=== PATIENT | female | born 1995 | race Caucasian/White ===

== ENCOUNTER → 2016-03-24 | Outpatient (CLI) | payer MEDICAID ==
--- NOTE | 2016-03-24 14:46 | Diagnostic Imaging Report ---
OB ultrasound. INDICATION: survey. FINDINGS: The heart rate is 144 beats minute. The placenta is anterior. There is no placenta previa. The cervix is 4.9 cm in length and is closed. survey parameters include unremarkable appearance of the posterior fossa, no ventriculomegaly, unremarkable spine, stomach, urinary bladder, and no significant hydronephrosis or cystic mass at the level of the kidneys. Two umbilical arteries are demonstrated. Four-chamber view appears unremarkable. The growth parameters are all around 22 weeks and 2 days, with a normal for gestational age of 21 weeks and 1 day based on first trimester ultrasound dating. IMPRESSION: Appropriate interval growth. Completed survey. Dictated by: Dictated on workstation # [id number]
== END ==
LOC: RAD 11:51
PROVIDERS: ATTEND Family Medicine
DX: Z36 Encounter for antenatal screening of mother (principal); Z3A.22 22 weeks gestation of pregnancy
CPT/HCPCS: 76805

== ENCOUNTER → 2016-07-25 | Outpatient (CLI) | payer MEDICAID ==
--- NOTE | 2016-07-25 10:11 | Diagnostic Imaging Report ---
INDICATION: Followup growth, fetus large for gestational age. TECHNIQUE: Multiple real-time grayscale images were obtained over the gravid uterus. COMPARISON: March 24, 2016. FINDINGS: The heart rate is 140 BPM. The presentation is cephalic. The cervix is obscured. The amniotic fluid index is 9.8 cm. The placenta is anterior with no placenta previa. The growth parameters are: Biparietal diameter: 38 weeks 4 days, at the 74th percentile Head circumference: 41 weeks 0 days, at the 85th percentile Abdominal circumference: 41 weeks 2 days, more than 98th percentile Femur length: 39 weeks 2 days, at the 69th percentile These average at: 40 weeks 1 day. The estimated weight is 4.1 kg plus/minus 0.6 kg. The gestational age based on the ARMAAN of 08/03/2016 is 38 weeks and 5 days. IMPRESSION: The fetus is large for the gestational age with the abdominal circumference measurements above the 98th percentile. Dictated by: Dictated on workstation # [id number]
== END ==
LOC: RAD 09:00
PROVIDERS: ATTEND Family Medicine
DX: O36.63X0 Maternal care for excessive fetal growth, third trimester, not applicable or unspecified (principal); Z3A.40 40 weeks gestation of pregnancy
CPT/HCPCS: 76816

== ENCOUNTER 2016-07-26 19:18 | Inpatient (IN) | payer MEDICAID ==
[~2016-07-26] VITALS: Ht 147.3 cm; Wt 122.5 kg
[2016-07-26 20:00] VITALS: BP 135/70
[2016-07-26] MEDS ORDERED: LACTATED RINGERS 1,000 ML IV ONE (20:01)
[2016-07-26] MEDS ORDERED: AMPICILLIN INJECTION 2,000 MG in NS (IVPB) 50 ML IV SCH (20:01)
[2016-07-26] MEDS ORDERED: NS (IVPB) 50 ML ONE (20:11)
[2016-07-26] MEDS ORDERED: AMPICILLIN 2000 MG INJECTION (IM/IV) ONE (20:11)
[2016-07-26] MEDS ORDERED: MINERAL OIL CONCENTRATE 99.9% 15 ML UDC TOP PRN (20:15)
[2016-07-26] MEDS: D5 LR IV SOLUTION 1,000 ML IV SCH (20:18)
[2016-07-26 20:19] LABS: BASOPHILS % (AUTO) 0 % (0-10); EOSINOPHILS # (AUTO) 0.1 10^3/uL (0.0-0.3); EOSINOPHILS % (AUTO) 1 % (0-10); LYMPHOCYTES # (AUTO) 1.5 X 10^3 (1.0-4.0); LYMPHOCYTES % (AUTO) 19 % (12-44); MEAN CORPUSCULAR HEMOGLOBIN 31 PG (25-34); MEAN CORPUSCULAR HGB CONC 33 G/DL (32-36); MEAN CORPUSCULAR VOLUME 94 FL (80-99); MEAN PLATELET VOLUME 10.1 FL (7.4-10.4); MONOCYTES # (AUTO) 0.8 X 10^3 (0.0-1.0); MONOCYTES % (AUTO) 9 % (0-12); NEUTROPHILS # (AUTO) 5.7 X 10^3 (1.8-7.8); NEUTROPHILS % (AUTO) 71 % (42-75); PLATELET COUNT 166 10^3/uL (130-400); RED BLOOD COUNT 3.73 10^6/uL (4.35-5.85); WHITE BLOOD COUNT 8.1 10^3/uL (4.3-11.0)
[2016-07-26] MEDS ORDERED: CATHETER FLUSH 10 ML SYR IV PRN (20:30)
[2016-07-26] MEDS: MISOPROSTOL 100 MCG (CYTOTEC) TAB PV SCH (21:27)
[2016-07-26 22:00] VITALS: BP 121/75
[2016-07-26] MEDS ORDERED: CATHETER FLUSH 10 ML SYR IV SCH (22:00)
[2016-07-26 23:00] VITALS: BP 125/65
[2016-07-27] VITALS (46 sets, daily range): BP systolic 81–193; BP diastolic 51–88
[2016-07-27] MEDS: AMPICILLIN INJECTION 1,000 MG in NS (IVPB) 50 ML IV SCH ×5 (00:02→14:31)
[2016-07-27] MEDS: D5 LR IV SOLUTION 1,000 ML IV SCH ×2 (03:57→12:53)
[2016-07-27] MEDS: MISOPROSTOL 100 MCG (CYTOTEC) TAB PV SCH (05:35)
--- NOTE | 2016-07-27 08:43 | History & Physical-OB ---
OB - Chief Complaint & HPI Date Date of Admission: Date of Admission: Jul 26, 2016 at 19:18 Chief Complaint/History OB-Reason for Admission/Chief: Induction of Labor Hx : 1 Hx Para: 0 Expected Date of Delivery: Aug 03, 2016 Gestational Age in Weeks: 39 Gestational Age in Days: 0 Indication for induction: other (suspected macrosomia) Admission Nurse Assessment Rev: Yes History of Labs A+, antibody neg, RNI, G/C and chlamydia neg. HepB/HIV/RPR NR. 1 hour glucola normal. GBS positive. Allergies and Home Medications Allergies Coded Allergies: codeine (Verified Allergy, Unknown, 07/26/16) OB - History Hx of Present Care: Yes Ultrasounds: Normal mid trimester US Obstetrical Complications: None Medical Complications: None Other Concerns: Suspected macrosomia- EFW on US 07/25 4100 grams. Information Induced Hypertension: No Maternal Gestational Diabetes: No Hemorrhage: No Obstetrical History Hx : 1 Hx Para: 0 Hx # Term Pregnancies: 0 Number of Living Children: 0 Hx Termination: No Hx Total # of Abortions (Spona: 0 Hx Multiple Gestation: No Hx Ectopic : No Hx Stillbirth: No Hx Complication: No Hx Induced Hypertens: No Hx Maternal Gestational Diabet: No Hx Hemorrhage: No Delivery History Hx Dystocia: No Hx Forceps Assisted Delivery: No Hx Vacuum Extraction Assisted: No Hx Placenta Abnormality: No Hx Distress: No Hx Large For Gestational Age I: No Hx Small for Gestational Age I: No Hx Section: No Hx Vaginal Delivery Post C-Sec: No Hx Blood Disorders: No Adverse Rxn to Tranfusion: No Patient Past Medical History PMHx: Denies Social History/Family History HIV/AIDS: No Recent Infectious Disease Expo: No Sexually Transmitted Disease: No Alcohol Use: Denies Use Recreational Drug Use: No Smoking Cessation: Never smoker Immunizations Hepatitis A: Yes Hepatitis B: Yes Tetanus Booster (TDap): Less than 5yrs Rubella: not immune RPR/VDRL: Negative GBS Status: Positive HBsAG: Negative OB - Admission Exam Physical Exam Date Seen by Provider: Jul 27, 2016 Time Seen by Provider: 08:41 Vitals: Vital Signs 07/26/16 07/27/16 20:00 07:00 Temp 98.1 Pulse 80 Resp 18 B/P (MAP) 118/88 HEENT: NCAT Abdomen: Gravid Extremities: Edema Cervical Dilatation: other (1.5 cm) Effacement: 50% Station: -3 Membranes: Intact Heart Rate: 130's Decelerations: No Decelerations Short Term Variability: Present Ad Operations Associate Variability: Average (6-25) Contractions on Admission: 6-10 Minutes Apart Bay Scoring Tool (Modified) Dilation (cm): 1-2cm (1) Effacement (%): 51-79% (2) Descent/Station: -3 (0) Cervix Consistency: Medium(1) Cervix Position: Posterior (0) Subtract 1 point for: Nulliparity (-1) Bay Score: 3 Labs Laboratory Tests Test 07/26/16 19:40 Range/Units White Blood Count 8.1 4.3-11.0 10^3/uL Red Blood Count 3.73 L 4.35-5.85 10^6/uL Hemoglobin 11.5 11.5-16.0 G/DL Hematocrit 35 35-52 % Mean Corpuscular Volume 94 80-99 FL Mean Corpuscular Hemoglobin 31 25-34 PG Mean Corpuscular Hemoglobin Concent 33 32-36 G/DL Red Cell Distribution Width 14.0 10.0-14.5 % Platelet Count 166 130-400 10^3/uL Mean Platelet Volume 10.1 7.4-10.4 FL Neutrophils (%) (Auto) 71 42-75 % Lymphocytes (%) (Auto) 19 12-44 % Monocytes (%) (Auto) 9 0-12 % Eosinophils (%) (Auto) 1 0-10 % Basophils (%) (Auto) 0 0-10 % Neutrophils # (Auto) 5.7 1.8-7.8 X 10^3 Lymphocytes # (Auto) 1.5 1.0-4.0 X 10^3 Monocytes # (Auto) 0.8 0.0-1.0 X 10^3 Eosinophils # (Auto) 0.1 0.0-0.3 10^3/uL Basophils # (Auto) 0.0 0.0-0.1 10^3/uL OB - Assessment/Plan/Diagnosis Assessment Assessment: group B positive strep, induction of labor Plan Plan: Induction Induction Method: per Misoprostol Protocol Other Plan Ampicillin for GBS positive Copy Copies To 1: NESSA VICENTE MD, BETHANY N MD Jul 27, 2016 08:43
--- NOTE | 2016-07-27 10:02 | OB Labor & Delivery Record ---
L&D History Date of Service Date of Service: Jul 27, 2016 History Expected Date of Delivery: Aug 03, 2016 Gestational Age in Weeks: 39 Hx : 1 Hx Para: 0 Complications Events: Routine care Operative Indications (Cesarea: Failure to Progress L&D Stage1 Stage One Onset of Labor - Date: Jul 26, 2016 Onset of Labor - Time: 21:00 Monitors and Tracing Monitor Mode: External Heart Rate: 125 Station: -2 Vital Signs VS - Last 72 Hours, by Label 07/26/16 07/26/16 07/26/16 07/26/16 20:00 21:00 22:00 23:00 Temp 98.1 Pulse 100 76 78 Resp 18 18 18 18 B/P (MAP) 135/70 121/75 125/65 07/27/16 07/27/16 07/27/16 07/27/16 00:00 01:00 02:00 03:00 Pulse 77 82 80 Resp 18 18 18 18 B/P (MAP) 129/71 119/63 113/54 07/27/16 07/27/16 07/27/16 07/27/16 04:00 05:00 06:00 07:00 Pulse 80 80 82 80 Resp 18 18 18 18 B/P (MAP) 113/54 118/68 127/75 118/88 Rupture of Membranes Spontaneous Ruture of Membrane: No Amniotic Membrane Rupture Time: 10:00 Amniotic Membrane Fluid Desc.: Clear Progress/Notes 07/27 at 10 am: 4 hours after second dose of cytotec, clover every 2-3 minutes. SVE 3/70/-1. AROM done with clear fluid and FSE placed for better tracing ability. FHT 130/moderate variability/reactive. Ctx 3-/10. Will monitor for cervical change after AROM if contractions continue, if contractions space out will start pitocin or if no change in 1-2 hours will start pitocin. 07/27 at 1700: SVE 4/90/-1. Discussed exam with patient and protracted labor course and she is agreeable to at this time for failure to progress. L&D Stage2 Monitors and Tracing Monitor Mode: External Heart Rate: 125 NESSA VICENTE MD Jul 27, 2016 10:02 am
[2016-07-27] MEDS ORDERED: SUFENTA 0.6MCG/ML BUPIVA 0.125 100 ML ONE (11:17)
[2016-07-27] MEDS ORDERED: OXYTOCIN/NORMAL SALINE 500 ML IV SCH (11:28)
[2016-07-27] MEDS ORDERED: fentaNYL INJECTION 100 MCG/2 ML AMP ONE ×3 (12:02→19:14)
[2016-07-27] MEDS ORDERED: LACTATED RINGERS 1,000 ML IV ONE (12:33)
[2016-07-27] MEDS ORDERED: ONDANSETRON 4 MG/2 ML (SDV) Z0FRAN IV PRN (12:45)
[2016-07-27] MEDS ORDERED: METOCLOPRAMIDE INJ 10 MG/2 ML (REGLAN) IV PRN (12:45)
[2016-07-27] MEDS ORDERED: diphenhydrAMINE 50 MG/ML INJ (BENADRYL) IV PRN (12:45)
[2016-07-27] MEDS ORDERED: NALOXONE 0.4 MG/ML 1 ML (NARCAN) VIAL IV PRN ×2 (12:45)
[2016-07-27] MEDS ORDERED: EPIDURAL (SUFENTA 0.6MCG/ML BUPIVA 0.125%) 100 ML BAG EPI PRN (12:45)
[2016-07-27] MEDS ORDERED: METOCLOPRAMIDE INJ 10 MG/2 ML (REGLAN) IV ONE (16:45)
[2016-07-27] MEDS ORDERED: LACTATED RINGERS 1,000 ML IV PRN ×2 (16:45)
[2016-07-27] MEDS ORDERED: CITRIC ACID/SOB CIT (BICITRA) 30 ML UDC PO ONE (16:45)
[2016-07-27] MEDS ORDERED: FAMOTIDINE 20MG/2ML IV (PEPCID) IV ONE (16:45)
[2016-07-27] MEDS ORDERED: AZITHROMYCIN IV ADD-VANTAGE 500 MG in SODIUM CHLORIDE (ADD-VANTAGE) 250 ML IV SCH (18:15)
[2016-07-27] MEDS ORDERED: LIDOCAINE PF 2% 10 ML (XYLOCAINE) AMP ONE (18:38)
[2016-07-27] MEDS ORDERED: OXYTOCIN/NORMAL SALINE 1,000 ML IV ONE (18:44)
[2016-07-27] MEDS ORDERED: DEXAMETHASONE PF 10 MG/ML (DECADRON) VIAL ONE (18:44)
[2016-07-27] MEDS ORDERED: ONDANSETRON 4 MG/2 ML (SDV) Z0FRAN ONE (18:44)
--- NOTE | 2016-07-27 18:45 | History & Physical-OB ---
OB - Chief Complaint & HPI Date/Time Date of Admission: Date of Admission: Jul 26, 2016 at 19:18 Time Seen by Provider: 17:00 Chief Complaint/History OB-Reason for Admission/Chief: Induction of Labor Hx : 1 Hx Para: 0 Expected Date of Delivery: Aug 03, 2016 Gestational Age in Weeks: 39 Gestational Age in Days: 0 Indication for induction: other (suspected macrosomia) Other reason for admission: Nikkie is a 20 y/o G1 @ 39w0d with IOL for suspected macrosomia. managed by Dr. Madrigal. I was consulted for options as arrest of labor and descent were diagnosed. She was given several doses of cytotec and then pitocin was started this morning with AROM. She has been given ampicillin for GBS ppx. She has progressed only from 3 to 4 cm over the last 10 hours. Last EFW on ultrasound was 4100g. c/b only by morbid obesity, rubella non-immune status. Admission Nurse Assessment Rev: Yes History of Labs Per the antepartum record/Dr. Madrigal's H&P Rubella non-immune Allergies and Home Medications Allergies Coded Allergies: codeine (Verified Allergy, Unknown, 07/26/16) OB - History Hx of Present Care: Yes Ultrasounds: Normal mid trimester US Obstetrical Complications: None Medical Complications: None Information Induced Hypertension: No Maternal Gestational Diabetes: No Hemorrhage: No Obstetrical History Hx : 1 Hx Para: 0 Hx # Term Pregnancies: 0 Number of Living Children: 0 Hx Termination: No Hx Total # of Abortions (Spona: 0 Hx Multiple Gestation: No Hx Ectopic : No Hx Stillbirth: No Hx Complication: No Hx Induced Hypertens: No Hx Maternal Gestational Diabet: No Hx Hemorrhage: No Delivery History Hx Dystocia: No Hx Forceps Assisted Delivery: No Hx Vacuum Extraction Assisted: No Hx Placenta Abnormality: No Hx Distress: No Hx Large For Gestational Age I: No Hx Small for Gestational Age I: No Hx Section: No Hx Vaginal Delivery Post C-Sec: No Hx Blood Disorders: No Adverse Rxn to Tranfusion: No Patient Past Medical History PMHx: Denies Social History/Family History HIV/AIDS: No Recent Infectious Disease Expo: No Sexually Transmitted Disease: No Alcohol Use: Denies Use Recreational Drug Use: No Smoking Cessation: Never smoker Immunizations Hepatitis A: Yes Hepatitis B: Yes Tetanus Booster (TDap): Less than 5yrs Rubella: not immune RPR/VDRL: Negative GBS Status: Positive HBsAG: Negative OB - Admission Exam Physical Exam Time Seen by Provider: 17:00 Vitals: Vital Signs 07/27/16 07/27/16 07/27/16 14:45 18:15 18:30 Temp 98.4 Pulse 82 Resp 18 B/P (MAP) 131/57 Pulse Ox 99 HEENT: NCAT Abdomen: Gravid Extremities: Edema Cervical Dilatation: other (1.5 cm) Effacement: 50% Station: -3 Membranes: Intact Heart Rate: 130's Decelerations: No Decelerations Short Term Variability: Present Longterm Variability: Average (6-25) Contractions on Admission: 6-10 Minutes Apart Bay Scoring Tool (Modified) Bay Score: 3 Labs Laboratory Tests Test 07/26/16 19:40 Range/Units White Blood Count 8.1 4.3-11.0 10^3/uL Red Blood Count 3.73 L 4.35-5.85 10^6/uL Hemoglobin 11.5 11.5-16.0 G/DL Hematocrit 35 35-52 % Mean Corpuscular Volume 94 80-99 FL Mean Corpuscular Hemoglobin 31 25-34 PG Mean Corpuscular Hemoglobin Concent 33 32-36 G/DL Red Cell Distribution Width 14.0 10.0-14.5 % Platelet Count 166 130-400 10^3/uL Mean Platelet Volume 10.1 7.4-10.4 FL Neutrophils (%) (Auto) 71 42-75 % Lymphocytes (%) (Auto) 19 12-44 % Monocytes (%) (Auto) 9 0-12 % Eosinophils (%) (Auto) 1 0-10 % Basophils (%) (Auto) 0 0-10 % Neutrophils # (Auto) 5.7 1.8-7.8 X 10^3 Lymphocytes # (Auto) 1.5 1.0-4.0 X 10^3 Monocytes # (Auto) 0.8 0.0-1.0 X 10^3 Eosinophils # (Auto) 0.1 0.0-0.3 10^3/uL Basophils # (Auto) 0.0 0.0-0.1 10^3/uL OB - Assessment/Plan/Diagnosis Assessment Assessment: group B positive strep, induction of labor Plan Other Plan 20 y/o G1 @ 39w0d with failed IOL, arrest of labor/descent, GBS+ Class III obesity (BMI 56) I reviewed with Nikkie that given suspected CPD and arrest of labor/descent, I would recommend delivery at this time. We reviewed risks including bleeding, infection, damage to surrounding structures, damage to mother/, VTE/stroke/OR. She voices her consent. To OR for CS. Sherita-operative ancef and azithromycin. Dr. Rohan aceves. CAROL ZIMMER MD Jul 27, 2016 18:45
[2016-07-27] MEDS ORDERED: FERR-74 PO (18:47)
[2016-07-27] MEDS ORDERED: IBUP-1773 PO (18:47)
[2016-07-27] MEDS ORDERED: OXYC-197 PO (18:47)
[2016-07-27] MEDS ORDERED: DOCU-143 PO (18:47)
--- NOTE | 2016-07-27 18:49 | Discharge Inst-Women's Service ---
Discharge Inst-Women's Serv Depart Medication/Instructions New, Converted or Re-Newed RX: RX on Chart Final Diagnosis Failed IOL, arrest of labor/descent, suspected CPD, primary CD Consults/Follow Up Additional Follow Up: Yes Orders/Referrals One week with Dr. Yu Six weeks with Dr. Madrigal Activity Driving Instructions: No Driving for 1 Week (or while taking narcotic pain medications) NO SMOKING: NO SMOKING Nothing Inside Vagina: No Douching, No [place], No Tampons Diet Discharge Diet: No Restrictions Symptoms to Report to : Bleeding Excessive, Pain Increased, Fever Over 101 Degrees F, Pain/Pressure in Chest, Vaginal Bleeding Increase, Dizziness/Fainting , Nausea/Vomiting, Shortness of Breath For Any Problems or Questions: Contact Your Physician, Go to Emergency Room Skin/Wound Care Infection Signs and Symptoms: Increased Redness, Foul Odor of Wound, Increased Drainage Operative Area Clean and Dry: Keep Incision Clean/Dry Stitches/Lisa/Dermabond: Dermabond, Care of Stitches Bathing Instructions: CAROL Hunt MD Jul 27, 2016 18:48
--- NOTE | 2016-07-27 18:54 | Cesarean Section Operative ---
Procedure Procedure Note Date of Procedure: 07/27/16 Pre-operative Diagnosis: Nikkie Murray is a 20 y/o G1 @ 39w0d with failed induction of labor, arrest of labor/descent, suspected CPD, GBS+, class III obesity (BMI 56) Post-operative Diagnosis: Same Procedure: Primary low transverse section Physician: Nelly Yu MD Guest Service Supervisor: Janice Cespedes APRN who was essential to the case for retraction of vital neurovascular structures Estimated blood loss: 1000 mL Disposition: Recovery room stable Findings: Viable male , Apgars 9/9, weight 4ee17ct, intact placenta, 3vc, normal appearing uterus, tubes, and ovaries. Indications: Nikkie Murray is a 20 y/o G1 @ 39w0d who presented for IOL as per Dr. Madrigal (her care provider) - see H&P for details. Cervical ripening was accomplished with cytotec, and then she received pitocin for induction. She had an epidural placed for analgesia. Ampicillin was given for GBS prophylaxis. She only changed from 3 to 4 cm over 10 hours with no further descent and was counseled on need for abdominal delivery which she consented to. Procedure Details: The patient was seen in pre-op and the procedure was discussed with the patient in full, including the risks, benefits, and alternatives. All questions were answered. The patient was taken to the operating room and a time out was performed, verifying patient and procedure. After spinal anesthesia was placed by our anesthesia colleagues, the patient was placed in the dorsal supine with leftward tilt for uterine displacement. Her abdomen was then prepped and draped in the typical sterile fashion. A Pfannenstiel skin incision was made using a scalpel and carried down through the underlying fascia. The fascia was incised in the midline and tented up using Emily clamps. On both the inferior and superior fascia side the rectus muscle was dissected off bluntly and sharply using Moseley scissors. The peritoneum was identified and entered bluntly in the midline. This was then stretched laterally using manual strength. After entering the abdominal cavity and confirming lack of intraperitoneal adhesions, a large Felix retractor was placed and the lower uterine segment was visualized. A bladder flap was created with the use of Metzenbaum scissors. A scalpel was utilized to make a low transverse uterine incision. Amniotomy was performed with an Allis clamp with return of clear fluid. The 's head was grasped and brought to the level of the incision. Fundal pressure was applied and infant was delivered without difficulty. Mouth and nares were suctioned with bulb suction. After the umbilical cord was clamped and cut, the was handed off to the pediatric staff. A sample of cord blood was then obtained. The placenta was delivered intact via uterine massage. The uterus was cleared of all clots and debris. The uterine incision was closed using 0 Vicryl in a running locked fashion. A second imbricated layer was placed using 0 Vicryl in a running fashion as well. Again the hysterotomy site was examined and hemostasis was observed. The bilateral tubes and ovaries appeared normal. The abdominal gutters were cleared of all clots and debris. A final check of the uterine incision showed it to be hemostatic. The peritoneum was closed using 3- 0 Vicryl in a running fashion. The fascia was closed with 0 Vicryl in a running fashion. The subcutaneous space was hemostatic, and irrigated. The subcutaneous space was closed with 3-0 Vicryl in several single interrupted stitches. The skin was then closed using 4-0 Monocryl in a running subcuticular fashion. The skin edges were reapproximated together and were hemostatic. A pressure dressing was applied. All sponge, lap and needle counts were correct at the end of the procedure per nursing. Vitals - Labs Vital Signs - I&O Vital Signs Date Time Temp Pulse Resp B/P (MAP) Pulse Ox O2 Delivery O2 Flow Rate FiO2 07/27/16 18:30 82 18 131/57 07/27/16 18:15 98.4 77 18 121/60 07/27/16 18:00 77 18 120/63 07/27/16 17:45 79 18 126/65 07/27/16 17:30 90 18 136/59 07/27/16 17:15 88 18 127/60 07/27/16 17:00 81 18 145/63 07/27/16 16:45 82 18 139/65 07/27/16 16:30 07/27/16 16:15 80 18 134/60 07/27/16 16:00 80 18 136/68 07/27/16 15:45 98.2 88 18 117/59 07/27/16 15:30 85 18 128/61 07/27/16 15:15 86 18 124/59 6/17 15:00 90 18 108/57 6/7/17 14:45 92 18 107/58 99 7/17 14:30 78 18 109/59 99 7/17 14:15 81 18 116/56 99 7/17 14:00 98.6 76 18 105/51 99 7/17 13:45 84 18 99 07/27/17 13:30 88 18 81/56 98 7/17 13:15 92 18 99 7/17 13:10 83 18 124/63 99 07/27/ 13:05 75 18 120/71 99 07/27/17 13:00 84 18 117/73 99 17 12:55 84 18 125/66 99 07/27/16 12:50 88 18 162/80 98 17 12:45 86 18 193/78 98 07/27/17 12:39 90 18 143/67 98 07/27/16 12:36 86 18 145/73 98 07/27/17 12:33 82 18 145/71 99 07/27/16 12:30 80 18 149/78 98 07/27/16 12:25 93 18 129/68 98 07/27/ 12:20 90 18 130/61 98 7/17 12:15 99.1 93 18 135/78 99 07/27/16 12:00 07/27/16 11:45 78 18 143/85 07/27/16 11:10 79 18 140/86 07/27/16 11:00 07/27/16 10:00 100.0 83 18 135/83 07/27/16 09:00 78 18 130/74 07/27/17 08:00 98.7 78 18 130/74 07/27/17 07:00 80 18 118/88 17 06:00 82 18 127/75 07/27/17 05:00 80 18 118/68 7/17 04:00 80 18 113/54 07/27/17 03:00 80 18 113/54 07/27/17 02:00 82 18 119/63 07/27/17 01:00 77 18 129/71 07/27/ 00:00 18 07/26/16 23:00 78 18 125/65 07/26/16 22:00 76 18 121/75 07/26/16 21:00 18 07/26/16 20:00 98.1 100 18 135/70 I & O 07/27/16 07:00 Intake Total 2150 ml Balance 2150 ml Labs Laboratory Tests 07/26/16 19:40: White Blood Count 8.1, Red Blood Count 3.73L, Hemoglobin 11.5, Hematocrit 35, Mean Corpuscular Volume 94, Mean Corpuscular Hemoglobin 31, Mean Corpuscular Hemoglobin Concent 33, Red Cell Distribution Width 14.0, Platelet Count 166, Mean Platelet Volume 10.1, Neutrophils (%) (Auto) 71, Lymphocytes (%) (Auto) 19 , Monocytes (%) (Auto) 9, Eosinophils (%) (Auto) 1, Basophils (%) (Auto) 0, Neutrophils # (Auto) 5.7, Lymphocytes # (Auto) 1.5, Monocytes # (Auto) 0.8, Eosinophils # (Auto) 0.1, Basophils # (Auto) 0.0 NELLY YU MD Jul 27, 2016 18:54
[2016-07-27] MEDS ORDERED: AZITHROMYCIN INJECTION 500 MG in NS (IVPB) 250 ML IV ONE (19:00)
[2016-07-27] MEDS ORDERED: ceFAZolin 2 GM/50 ML NS 50 ML IV NR (19:00)
[2016-07-27] MEDS ORDERED: AZITHROMYCIN IV ADD-VANTAGE 500 MG in SODIUM CHLORIDE (ADD-VANTAGE) 250 ML IV NR (19:00)
[2016-07-27] MEDS ORDERED: PHENYLEPHRINE 100 MCG/ML 10 ML (ANESTHESIA) SYR ONE (19:06)
[2016-07-27] MEDS ORDERED: BUPIVACAINE 0.25% 30 ML (SENSORCAINE) VIAL ONE (19:17)
[2016-07-27] MEDS ORDERED: KETAMINE HCL 100 MG/ML 5 ML VIAL ONE (19:22)
[2016-07-27] MEDS ORDERED: KETOROLAC 30 MG/ML VIAL ONE (19:36)
[2016-07-27] MEDS ORDERED: MEASLES,MUMPS,RUBELLA 1 EA INJ SC SCH (20:30)
[2016-07-27] MEDS ORDERED: HYDROmorphone (DILAUDID) 2 MG/ML VIAL IVP PRN (20:30)
[2016-07-27] MEDS ORDERED: TETANUS,DIPTH,PERTUSS P/F (BOOSTRIX) 0.5 ML VIAL IM SCH (20:30)
[2016-07-27] MEDS: KETOROLAC 30 MG/ML VIAL IVP SCH (20:35)
[2016-07-27] MEDS: DOCUSATE SODIUM 100 MG (COLACE) CAP PO SCH (21:00)
[2016-07-27] MEDS: OXYTOCIN/NORMAL SALINE 500 ML IV SCH (21:41)
[2016-07-27] MEDS: CATHETER FLUSH 10 ML SYR IV SCH (22:00)
[2016-07-28 00:07] VITALS: BP 114/67
[2016-07-28] MEDS: oxyCODONE/APAP 5/325MG (PERCOCET 5) TABLET PO PRN ×3 (00:07→18:45)
[2016-07-28] MEDS: OXYTOCIN/NORMAL SALINE 500 ML IV SCH (01:31)
[2016-07-28] MEDS: KETOROLAC 30 MG/ML VIAL IVP SCH ×2 (02:55→08:52)
[2016-07-28 05:00] VITALS: BP 107/55
[2016-07-28] MEDS: CATHETER FLUSH 10 ML SYR IV SCH (06:00)
[2016-07-28 06:56] LABS: BASOPHILS % (AUTO) 0 % (0-10); EOSINOPHILS % (AUTO) 0 % (0-10); LYMPHOCYTES # (AUTO) 0.7 X 10^3 (1.0-4.0); LYMPHOCYTES % (AUTO) 7 % (12-44); MEAN CORPUSCULAR HEMOGLOBIN 30 PG (25-34); MEAN CORPUSCULAR HGB CONC 31 G/DL (32-36); MEAN CORPUSCULAR VOLUME 96 FL (80-99); MEAN PLATELET VOLUME 9.9 FL (7.4-10.4); MONOCYTES # (AUTO) 0.6 X 10^3 (0.0-1.0); MONOCYTES % (AUTO) 6 % (0-12); NEUTROPHILS # (AUTO) 9.6 X 10^3 (1.8-7.8); NEUTROPHILS % (AUTO) 88 % (42-75); PLATELET COUNT 142 10^3/uL (130-400); RED BLOOD COUNT 2.76 10^6/uL (4.35-5.85); RED CELL DISTRIBUTION WIDTH 13.8 % (10.0-14.5)
[2016-07-28] MEDS ORDERED: FERROUS SULF 325 MG (IRON) TAB PO SCH (07:00)
[2016-07-28 08:30] VITALS: BP 122/74
[2016-07-28] MEDS: FERROUS SULF 325 MG (IRON) TAB PO SCH (08:52)
[2016-07-28] MEDS: DOCUSATE SODIUM 100 MG (COLACE) CAP PO SCH ×2 (08:52→20:37)
--- NOTE | 2016-07-28 09:21 | Progress Note-Standard ---
Standard Progress Note Progress Notes/Assess & Plan Date Seen by Provider: Jul 28, 2016 Time Seen by Provider: 09:05 Progress/Assessment & Plan Patient doing well POD 1 PLTCS. Reports good pain control, and actually ambulating upon me entering the room. Voiding freely. Lochia light. NO concerns voiced by patient. Vital Sign - Last 24 Hours 07/27/16 6 6/ 6 10:00 11:00 11:10 11:45 Temp 100.0 Pulse 83 79 78 Resp 18 18 18 B/P (MAP) 135/83 140/86 143/85 //17 6//17 6//17 6/17 12:00 12:15 12:20 12:25 Temp 99.1 Pulse 93 90 93 Resp 18 18 18 B/P (MAP) 135/78 130/61 129/68 Pulse Ox 99 98 98 /7/17 6//17 6//17 6 12:30 12:33 12:36 12:39 Pulse 80 82 86 90 Resp 18 18 18 18 B/P (MAP) 149/78 145/71 145/73 143/67 Pulse Ox 98 99 98 98 /7/17 6//17 6/7/17 6//17 12:45 12:50 12:55 13:00 Pulse 86 88 84 84 Resp 18 18 18 18 B/P (MAP) 193/78 162/80 125/66 117/73 Pulse Ox 98 98 99 99 07/27/07/27/ 6//17 //17 13:05 13:10 13:15 13:30 Pulse 75 83 92 88 Resp 18 18 18 18 B/P (MAP) 120/71 124/63 81/56 Pulse Ox 99 99 99 98 /7/17 6//17 6//17 6//17 13:45 14:00 14:15 14:30 Temp 98.6 Pulse 84 76 81 78 Resp 18 18 18 18 B/P (MAP) 105/51 116/56 109/59 Pulse Ox 99 99 99 99 /7/17 6//17 6//17 6//17 14:45 15:00 15:15 15:30 Pulse 92 90 86 85 Resp 18 18 18 18 B/P (MAP) 107/58 108/57 124/59 128/61 Pulse Ox 99 07/27/16 07/27/16 07/27/16 07/27/16 15:45 16:00 16:15 16:30 Temp 98.2 Pulse 88 80 80 Resp 18 18 18 B/P (MAP) 117/59 136/68 134/60 07/27/07/27/16 07/27/16 07/27/16 16:45 17:00 17:15 17:30 Pulse 82 81 88 90 Resp 18 18 18 18 B/P (MAP) 139/65 145/63 127/60 136/59 07/27/07/27/16 07/27/16 07/27/16 17:45 18:00 18:15 18:30 Temp 98.4 Pulse 79 77 77 82 Resp 18 18 18 18 B/P (MAP) 126/65 120/63 121/60 131/57 07/27/16 07/27/16 07/28/16 07/28/16 18:49 21:15 00:07 05:00 Temp 98.9 97.8 98.7 Pulse 87 88 90 91 Resp 18 20 18 18 B/P (MAP) 131/61 112/61 114/67 107/55 Pulse Ox 97 96 97 07/28/16 08:30 Temp 97.6 Pulse 106 Resp 18 B/P (MAP) 122/74 Pulse Ox 99 Intake and Output 07/27/16 07/27/16 07/28/16 15:00 23:00 07:00 Intake Total 2000 ml 1880 ml 1500 ml Output Total 1100 ml 600 ml Balance 2000 ml 780 ml 900 ml Laboratory Tests Test 07/28/16 06:15 Range/Units White Blood Count 11.0 4.3-11.0 10^3/uL Red Blood Count 2.76 L 4.35-5.85 10^6/uL Hemoglobin 8.3 #L 11.5-16.0 G/DL Hematocrit 26 L 35-52 % Mean Corpuscular Volume 96 80-99 FL Mean Corpuscular Hemoglobin 30 25-34 PG Mean Corpuscular Hemoglobin Concent 31 L 32-36 G/DL Red Cell Distribution Width 13.8 10.0-14.5 % Platelet Count 142 130-400 10^3/uL Mean Platelet Volume 9.9 7.4-10.4 FL Neutrophils (%) (Auto) 88 H 42-75 % Lymphocytes (%) (Auto) 7 L 12-44 % Monocytes (%) (Auto) 6 0-12 % Eosinophils (%) (Auto) 0 0-10 % Basophils (%) (Auto) 0 0-10 % Neutrophils # (Auto) 9.6 H 1.8-7.8 X 10^3 Lymphocytes # (Auto) 0.7 L 1.0-4.0 X 10^3 Monocytes # (Auto) 0.6 0.0-1.0 X 10^3 Eosinophils # (Auto) 0.0 0.0-0.3 10^3/uL Basophils # (Auto) 0.0 0.0-0.1 10^3/uL Incision: c/d/i Diagnosis: POD 1 PLTCS Acute blood loss anemia- asymptomatic BMI 56 P: Continue routine po care replace iron REGIANLD CASTILLO DO Jul 28, 2016 9:21 am
[2016-07-28] MEDS ORDERED: IBUPROFEN 800 MG (MOTRIN) TAB PO ONE ×2 (13:13→20:17)
[2016-07-28 13:20] VITALS: BP 117/68
[2016-07-28] MEDS: ENOXAPARIN 40 MG/0.4 ML (LOVENOX) SYR SC SCH (13:20)
[2016-07-28] MEDS: IBUPROFEN 800 MG (MOTRIN) TAB PO SCH ×2 (13:20→20:36)
--- NOTE | 2016-07-28 13:52 | Anesthesia-Regional Post-Op ---
Regional Patient Condition Mental Status: Alert, Oriented x3 Circulation: Same as Pre-Op Headache: Absent Sensation: Full Recovery Motor Block: Absent Post Op Complications Complications None Follow Up Care/Instructions Patient Instructions None needed. Anesthesia/Patient Condition Patient is doing well, no complaints, stable vital signs, no apparent adverse anesthesia problems. No complications reported per nursing. ANTHONY BROWN CRNA Jul 28, 2016 13:52
[2016-07-28 18:45] VITALS: BP 109/67
[2016-07-28 19:40] VITALS: BP 104/67
[2016-07-29 01:00] VITALS: BP 110/70
[2016-07-29] MEDS: IBUPROFEN 800 MG (MOTRIN) TAB PO SCH ×2 (02:53→08:16)
[2016-07-29] MEDS: CATHETER FLUSH 10 ML SYR IV SCH ×2 (06:00→13:51)
[2016-07-29 08:00] VITALS: BP 95/58
[2016-07-29] MEDS: FERROUS SULF 325 MG (IRON) TAB PO SCH (08:15)
[2016-07-29] MEDS: oxyCODONE/APAP 5/325MG (PERCOCET 5) TABLET PO PRN (08:16)
[2016-07-29] MEDS: ENOXAPARIN 40 MG/0.4 ML (LOVENOX) SYR SC SCH (13:24)
[2016-07-29] MEDS: DOCUSATE SODIUM 100 MG (COLACE) CAP PO SCH (13:51)
[2016-07-29 14:00] VITALS: BP 110/62
--- NOTE | 2016-07-29 14:20 | Postpartum Progress Note ---
Post Op Post-operative Day #2 s/p PLTCS, FTP/arrest Declined Lovenox Subjective: Patient is without complaints. Ambulating, voiding after hoffman removed. Tolerating a regular diet without nausea or vomiting. Normal lochia. Pain is well controlled with oral pain medications. Passing flatus. baby has been discharged. Objective: Vital Sign - Last 12Hours 07/29/16 08:00 Temp 96.2 Pulse 88 Resp 17 B/P (MAP) 95/58 Pulse Ox 98 Physical Exam: General - Alert and oriented, no apparent distress Abdomen - Soft, appropriately tender to palpation, non-distended, fundus firm at umbilicus Incision - clean, dry and intact; no erythema or induration, no drainage Extremities - no edema, negative Maricarmen's bilaterally Assessment: 1. post-operative day # 1, status post s/p PLTCS. Recovering well, hemodynamically stable 2. Acute blood loss anemia - stable, replacing iron Plan: Routine post-operative care. Encourage breast feeding. Encourage ambulation. VTE prophylaxis: SCDs. Ferrous sulfate supplementation. Plan for discharge [today Vitals - Labs Vital Signs - I&O Vital Signs Date Time Temp Pulse Resp B/P (MAP) Pulse Ox O2 Delivery O2 Flow Rate FiO2 07/29/16 08:00 96.2 88 17 95/58 98 07/29/16 01:00 96.8 72 18 110/70 100 07/28/16 19:40 96.8 60 18 104/67 100 07/28/16 18:45 98.6 101 18 109/67 99 I & O 07/29/16 07:00 Intake Total 600 ml Balance 600 ml Labs Microbiology 07/27/16 MRSA Screen - Final, Complete MRSA not isolated SARAH BRUNER DO Jul 29, 2016 14:20
== END 2016-07-29 15:40 | disposition home or self-care (01) | DRG 765 ==
LOC: LDRP 19:18 → WS 07-27 20:56
PROVIDERS: ADMIT Family Medicine; ATTEND Family Medicine
PROC: 3E0DXGC Introduction of Other Therapeutic Substance into Mouth and Pharynx, External Approach (ICD-10-PCS; 2016-07-27)
PROC: 10D00Z1 Extraction of Products of Conception, Low, Open Approach (ICD-10-PCS; principal; 2016-07-27 18:52)
DX: O62.1 Secondary uterine inertia (principal); O32.4XX0 Maternal care for high head at term, not applicable or unspecified; O61.0 Failed medical induction of labor; O36.63X0 Maternal care for excessive fetal growth, third trimester, not applicable or unspecified; O99.214 Obesity complicating childbirth; E66.01 Morbid (severe) obesity due to excess calories; Z68.43 Body mass index [BMI] 50.0-59.9, adult; O90.81 Anemia of the puerperium; D62 Acute posthemorrhagic anemia; O99.824 Streptococcus B carrier state complicating childbirth; Z37.0 Single live birth; Z3A.39 39 weeks gestation of pregnancy
CPT/HCPCS: 36415; 85025; 86850; 86900; 86901; 87081; 90707; 94664

== ENCOUNTER → 2016-10-26 | Outpatient (CLI) | payer MEDICAID ==
[~2016-10-26] MED LIST: DOCU-143 PO; FERR-74 PO; IBUP-1773 PO; OXYC-197 PO
[2016-10-28 10:08] LABS: IMMUNOGLOBULIN IGA 142 mg/dL (71-263)
[2016-10-31 07:59] LABS: GLIADIN ANTIBODY IGA 2 Units (0-19)
[2016-10-31 08:00] LABS: GLIADIN ANTIBODY IGG 1 Units (0-19)
== END ==
LOC: LAB 20:14
PROVIDERS: ATTEND Nurse Practitioner Family
DX: R10.13 Epigastric pain (principal); R19.7 Diarrhea, unspecified
CPT/HCPCS: 36415; 82784; 83516

== ENCOUNTER → 2017-07-21 | Outpatient (CLI) | payer MEDICAID ==
[~2017-07-21] MED LIST changes: -FERR-74 PO; +FERR325T18 PO
--- NOTE | 2017-07-21 14:09 | Diagnostic Imaging Report ---
PROCEDURE: US OB SINGLE FETUS <14 WKS. TECHNIQUE: Multiple real-time grayscale images were obtained over the gravid uterus in various projections. INDICATION: . Dating. COMPARISON: None. FINDINGS: There is a single live intrauterine gestation demonstrated. The crown-rump length measures about 2.9 cm which corresponds to an estimated gestational age of 9 weeks 6 days yielding an ARMAAN of 02/17/2018. cardiac activity is detected with a heart rate of 174 beats per minute. There is a small subchorionic hemorrhage present measuring up to 3.9 cm x 2.4 cm x 0.8 cm. Neither ovary is demonstrated. IMPRESSION: 1. Single live intrauterine gestation dating 9 weeks 6 days based on today's ultrasound with an ARMAAN of 02/17/2018. Heart rate is 174 beats per minute. 2. Small subchorionic hemorrhage. Dictated by: Dictated on workstation # [id number]
== END ==
LOC: RAD 11:48
PROVIDERS: ATTEND Family Medicine
DX: O34.81 Maternal care for other abnormalities of pelvic organs, first trimester (principal); Z3A.09 9 weeks gestation of pregnancy
CPT/HCPCS: 76801

== ENCOUNTER → 2017-07-25 | Outpatient (CLI) | payer MEDICAID ==
--- NOTE | 2017-07-25 12:42 | Diagnostic Imaging Report ---
INDICATION: First trimester bleeding. TECHNIQUE: Multiple real-time grayscale images were obtained over the gravid uterus. COMPARISON: 07/21/2017. FINDINGS: The gestational sac with normal morphology remains in good position at the level of the fundus. An embryo is again seen with heart rate of 170 beats per minute. Subchorionic hemorrhage is again noted which is greatest along the inferior aspect of the gestational sac, where it measures up to 1.6 cm in thickness. A thin component of the subchorionic hemorrhage is thin along the posterior margin of the entire gestational sac. The adnexa were not well visualized on this examination due to bowel gas. IMPRESSION: 1. Single live early intrauterine with heart rate of 170 beats per minute. 2. Perigestational/subchorionic hemorrhage has increased in size since prior exam of 07/21/2017. Dictated by: Dictated on workstation # [id number]
== END ==
LOC: RAD 09:29
PROVIDERS: ATTEND Family Medicine
DX: O46.91 Antepartum hemorrhage, unspecified, first trimester (principal); O20.0 Threatened abortion; Z3A.00 Weeks of gestation of pregnancy not specified
CPT/HCPCS: 76816

== ENCOUNTER → 2017-08-18 | Outpatient (CLI) | payer MEDICAID ==
--- NOTE | 2017-08-18 13:33 | Diagnostic Imaging Report ---
PROCEDURE: US OB SINGLE FETUS <14 WKS. TECHNIQUE: Multiple real-time grayscale images were obtained over the gravid uterus in various projections. INDICATION: Subchorionic bleed, followup. CORRELATION STUDY: 07/21/2017 FINDINGS: This is a limited, followup obstetrical examination. Previous imaging demonstrated a approximately 7 x 2 cm subchorionic bleed. On followup, this appears to have essentially resolved. Intrauterine demonstrated gestational sac configuration to be unremarkable. The crown-rump length measures 7.70 cm for an estimated age of 13 weeks 6 days. cardiac activity 167 beats per minute. Imaging of the maternal adnexa demonstrates nonvisualization of either ovary. Perhaps obscured by bowel gas or positional. IMPRESSION: 1. Single viable intrauterine with estimated age of 13 weeks 6 days for sonographic estimated date of delivery 02/17/2018. 2. A previously noted subchorionic hematoma appears essentially resolved. Dictated by: Dictated on workstation # [id number]
== END ==
LOC: RAD 11:49
PROVIDERS: ATTEND Family Medicine
DX: O46.8X1 Other antepartum hemorrhage, first trimester (principal); Z3A.13 13 weeks gestation of pregnancy
CPT/HCPCS: 76801

== ENCOUNTER 2017-11-30 13:17 | Outpatient (CLI) | payer MEDICAID ==
[~2017-11-30] VITALS: Ht 147.3 cm; Wt 104.8 kg
[~2017-11-30 13:17] MED LIST changes: -OXYC-197 PO; +OXYC1TAB87 PO
[2017-11-30 13:40] VITALS: BP 127/68
[2017-11-30] MEDS ORDERED: FLU QUADRIvalent (5+ YOA) 2018-2019 (AFLURIA) 0.5 ML IM ONE (14:45)
--- NOTE | 2017-11-30 16:34 | Diagnostic Imaging Report ---
EXAMINATION: OB ultrasound limited. INDICATION: Vaginal bleeding. FINDINGS: The recent OB ultrasound exam of 10/11/2017 noted a single live fetus of approximately 21 weeks 5 days gestation +/- 1 week. On this exam, the fetus is again visualized. The fetus is in breech presentation with heart motion noted and a rate of 144 bpm recorded. There are no obvious abnormalities identified. The placenta is anterior and there is no evidence for previa or abruption. The amniotic fluid volume is within normal limits. The growth parameters are not obtained for this exam. There is no abnormality to account for the patient's vaginal bleeding. IMPRESSION: 1. There is a single live fetus in breech presentation. 2. There is no acute abnormality to account for the patient's vaginal bleeding. Dictated by: Dictated on workstation # [id number]
== END 2017-11-30 16:35 | disposition home or self-care (01) ==
LOC: WSo 13:17 → LDRP 13:17 → WSo 16:35
PROVIDERS: ATTEND Family Medicine
DX: O46.93 Antepartum hemorrhage, unspecified, third trimester (principal); Z3A.28 28 weeks gestation of pregnancy
CPT/HCPCS: 76815; 99213

== ENCOUNTER 2018-02-08 05:39 | Outpatient (CLI) | payer MEDICAID ==
[~2018-02-08] VITALS: Ht 147.3 cm; Wt 104.8 kg
== END 2018-02-08 11:32 | disposition home or self-care (01) ==
LOC: PREOP 05:39
PROVIDERS: ATTEND Obstetrics & Gynecology
DX: Z01.818 Encounter for other preprocedural examination (principal)

== ENCOUNTER 2018-02-11 13:30 | Inpatient (IN) | payer MEDICAID ==
[~2018-02-11] VITALS: Ht 147.3 cm; Wt 109.4 kg
[2018-02-11 13:51] VITALS: BP 144/74
[2018-02-11 13:59] LABS: BILIRUBIN,URINE NEGATIVE (NEGATIVE); CLARITY,URINE SLIGHTLY CLOUDY; COLOR,URINE RED; GLUCOSE, URINE (UA) NEGATIVE (NEGATIVE); KETONES,URINE NEGATIVE (NEGATIVE); LEUKOCYTE ESTERASE ,URINE 2+ (NEGATIVE); NITRITE,URINE NEGATIVE (NEGATIVE); PH,URINE 7 (5-9); PROTEIN,URINE 2+ (NEGATIVE); UROBILINOGEN,URINE NORMAL (NORMAL)
[2018-02-11 14:13] LABS: BACTERIA,URINE TRACE /HPF; RBC,URINE TNTC /HPF
[2018-02-11] MEDS ORDERED: D5 LR IV SOLUTION 0 ML IV ONE (17:15)
[2018-02-11] MEDS ORDERED: LACTATED RINGERS 1,000 ML IV ONE (17:15)
[2018-02-11] MEDS ORDERED: ceFAZolin 2 GM IV Premixed 50 ML IV ONE (17:30)
[2018-02-11] MEDS ORDERED: metroNIDAZOLE 500MG/100ML IVPB 100 ML IV ONE (17:30)
[2018-02-11] MEDS ORDERED: LACTATED RINGERS 1,000 ML IV PRN (17:32)
[2018-02-11 17:44] LABS: BASOPHILS % (AUTO) 0 % (0-10); EOSINOPHILS # (AUTO) 0.1 10^3/uL (0.0-0.3); EOSINOPHILS % (AUTO) 1 % (0-10); HEMATOCRIT 38 % (35-52); HEMOGLOBIN 13.1 G/DL (11.5-16.0); LYMPHOCYTES # (AUTO) 1.3 X 10^3 (1.0-4.0); LYMPHOCYTES % (AUTO) 18 % (12-44); MEAN CORPUSCULAR HEMOGLOBIN 32 PG (25-34); MEAN CORPUSCULAR HGB CONC 34 G/DL (32-36); MEAN CORPUSCULAR VOLUME 95 FL (80-99); MONOCYTES # (AUTO) 0.5 X 10^3 (0.0-1.0); MONOCYTES % (AUTO) 6 % (0-12); NEUTROPHILS # (AUTO) 5.8 X 10^3 (1.8-7.8); NEUTROPHILS % (AUTO) 76 % (42-75); PLATELET COUNT 152 10^3/uL (130-400); RED BLOOD COUNT 4.06 10^6/uL (4.35-5.85); RED CELL DISTRIBUTION WIDTH 14.2 % (10.0-14.5); WHITE BLOOD COUNT 7.6 10^3/uL (4.3-11.0)
[2018-02-11] MEDS ORDERED: METOCLOPRAMIDE INJ 10 MG/2 ML (REGLAN) IV ONE (17:45)
[2018-02-11] MEDS ORDERED: CITRIC ACID/SOB CIT (BICITRA) 30 ML UDC PO ONE (17:45)
[2018-02-11] MEDS ORDERED: FAMOTIDINE 20MG/2ML IV (PEPCID) IV ONE (17:45)
[2018-02-11] MEDS ORDERED: CATHETER FLUSH 10 ML SYR IV PRN (17:45)
[2018-02-11] MEDS ORDERED: CITRIC ACID/SOB CIT (BICITRA) 30 ML UDC ONE (17:47)
[2018-02-11] MEDS ORDERED: FAMOTIDINE 20MG/2ML IV (PEPCID) ONE (17:47)
[2018-02-11] MEDS ORDERED: metroNIDAZOLE 500MG/100ML IVPB 100 ML ONE (17:47)
[2018-02-11] MEDS ORDERED: ceFAZolin 2 GM IV Premixed 50 ML ONE (17:47)
[2018-02-11] MEDS ORDERED: METOCLOPRAMIDE INJ 10 MG/2 ML (REGLAN) ONE (17:47)
[2018-02-11] MEDS ORDERED: ONDANSETRON 4 MG/2 ML (SDV) Z0FRAN ONE (18:06)
[2018-02-11] MEDS ORDERED: KETOROLAC 30 MG/ML VIAL ONE (18:06)
[2018-02-11] MEDS ORDERED: fentaNYL INJECTION 100 MCG/2 ML AMP ONE (18:06)
[2018-02-11] MEDS ORDERED: OXYTOCIN/NORMAL SALINE 1,000 ML IV ONE (18:06)
[2018-02-11] MEDS ORDERED: MEPERIDINE (DEMEROL) INJ 50 MG/ML ONE (18:41)
--- OUTSIDE RECORDS SUMMARY | 2018-02-11 18:42 | XMS REPORT ---
Author Author JULESNESSA [facility] Address [address] [place] [address] Care Team Providers Care Instrument Repairer Helper Name Role Phone GRISELDA VICENTEY Unavailable PROBLEMS Type Condition ICD9-CM Code LPU43-GP Code Onset Dates Condition Status SNOMED Code Problem care in third trimester Z34.93 Active 195984303 Problem Dyspepsia R10.13 Active 270920271 Problem Obesity affecting in first trimester O99.211 Active 169002533422 Problem Previous section complicating O34.219 Active 393261665 ALLERGIES No Information ENCOUNTERS Encounter Location Date Diagnosis [address] [address] Jan, Third trimester Z34.93 ; BMI 45.0-49.9, adult Z68.42 and 38 weeks gestation of Z3A.[address] [address] Jan, [place] [address] [place] [id number] [place] [address]- [address] Jan, BMI 45.0-49.9, adult Z68.42 and 36 weeks gestation of Z3A.36 [place] [address] [id number] [place] [address]- 7948 06 Jan, 2018 screening for streptococcus B Z36.85 ; Third trimester Z34.93 and 36 weeks gestation of Z3A.36 [place] [address] [address] Dec, Third trimester Z34.93 ; Pelvic pain R10.2 and 34 weeks gestation of Z3A.[address] [address] Nov, BMI 45.0-49.9, adult Z68.42 ; Third trimester Z34.93 ; Encounter for immunization Z23 and 30 weeks gestation of Z3A.30 [place] [address] [place] [address]27- [address] 17 Nov, 2017 [place] [address] [id number] [place] [address] 5[address]18- 4290 Nov, 28 weeks gestation of Z3A.28 ; Previous section complicating O34.219 and care in third trimester Z34.93 [place] [address] [address] [id number] [place] [address] 21462- 4010 Nov, [place] [id number] [place] [address] 22072- 0479 Oct, care, subsequent in second trimester Z34.82 ; 24 weeks gestation of Z3A.24 and BMI 45.0-49.9, adult Z68.42 [place] [address] [place] [address]87- [address] 08 Sep, 2017 care, subsequent in second trimester Z34.82 ; 19 weeks gestation of Z3A.19 and BMI 40.0-44.9, adult Z68.41 [place] [address] [place] [address] 20281- 6469 Aug, Second trimester Z33.1 ; 15 weeks gestation of Z3A.15 and BMI 40.0-44.9, adult Z68.41 [place] [address] [place] [address] 01583- 2249 11 Jul, 2017 care, subsequent in first trimester Z34.81 ; Other specified disorders of amniotic fluid and membranes, first trimester, not applicable or unspecified O41.8X10 ; Other antepartum hemorrhage , first trimester O46.8X1 ; 10 weeks gestation of Z3A.10 and BMI 40.0- 44.9, adult Z68.41 [place] [address] [place] [address] Jul, Threatened miscarriage O20.0 [place] [address] [address] June, Normal in multigravida Z34.80 ; First trimester Z34.90 ; 7 weeks gestation of Z3A.01 ; Previous section complicating O34.219 and BMI 40.0-44.9, adult Z68.41 [place] [address] [address] June, [place] [address] [address] May, Encounter for test Z32.00 [place] [address] [address]- [address] Oct, Diarrhea, unspecified type R19.7 [place] [address] [address]- [address] Oct, Dyspepsia R10.13 and Diarrhea, unspecified type R19.7 [place] [address] [address] [id number] [place] [address]58- 8196 Aug, Follow-up, , routine Z39.2 [place] [address] [address] [id number] [place] [address] 54524- 0616 Jul, 38 weeks gestation of Z3A.38 and Large for gestational age fetus affecting management of mother, third trimester, not applicable or unspecified fetus O36.63X0 [place] [address] [id number] [place] [address] 45563- 1610 June, Normal first in third trimester Z34.03 and 37 weeks gestation of Z3A.37 [place] [address] [address] [id number] [place] [address] 40976- 3640 June, 36 weeks gestation of Z3A.36 and screening for streptococcus B Z36 [place] [address] [place] [address] June, Normal first in third trimester Z34.03 and 35 weeks gestation of Z3A.35 [facility] [place] [place] [address] [id number] June, Normal first in third trimester Z34.03 and 33 weeks gestation of Z3A.33 [facility] [place] [id number] [place] [address] [id number] May, 31 weeks gestation of Z3A.31 ; Normal first in third trimester Z34.03 and Encounter for immunization Z23 [facility] [address] [place] [address] [id number] May, Normal first in third trimester Z34.03 and 29 weeks gestation of Z3A.29 [facility] [place] [place] [address] [id number] Mar, Normal first confirmed, currently in second trimester Z34.02 and 24 weeks gestation of Z3A.24 [facility] [place] [id number] [place] [address] [id number] Feb, Normal first confirmed, currently in second trimester Z34.02 and 20 weeks gestation of Z3A.20 [facility] [address] [place] [address] [phone] Feb, Normal first confirmed, currently in second trimester Z34.02 and 16 weeks gestation of Z3A.16 [facility] [address] [id number] Jan, Normal first confirmed, currently in first trimester Z34.01 and 13 weeks gestation of Z3A.13 [facility] [address] [id number] [id number] Dec, Normal first confirmed, currently in first trimester Z34.01 ; 7 weeks gestation of Z3A.01 and Encounter for immunization Z23 [facility] [address] [id number] [phone] Nov, test positive Z32.01 [facility] [place] [address] [facility] [address] [id number] [phone] May, Kidney stone N20.0 [facility] [id number] [place] [address] [id number] May, Acute cystitis without hematuria N30.00 and Kidney stone N20.0 [facility] [address] [address] [id number] [address] Apr, [facility] [id number] [place] [address] [phone] Apr, Routine gynecological examination Z01.419 ; Encounter for Papanicolaou smear for cervical cancer screening Z12.4 ; Contraceptive management Z30.9 and Screening for STD sexually transmitted disease Z11.3 [facility] [address] [id number] [place] [address] 2546 14 May, 2014 [facility] [id number] [place] [phone] May, [facility] [id number] [place] [address] [phone] Apr, [facility] [address] [address] [id number] [place] [address] 65494- 2546 Apr, [facility] [address] [address] [id number] [place] [address] 24939- 2546 May, [facility] [id number] [place] [address] [id number] Mar, [facility] [id number] [place] [address] [phone] Oct, [facility] [id number] [place] [address] [phone] Aug, [facility] [address] [id number] [place] [address] [phone] Jul, [facility] [address] [id number] [place] [address] [phone] Jul, [facility] [id number] [place] [address] [id number] Jul, [facility] [id number] [place] [address] [phone] Feb, [place] [address] [facility] [id number] [place] [phone] Feb, [facility] [address] [facility] [id number] [address] Jan, IMMUNIZATIONS No Known Immunizations SOCIAL HISTORY Never Assessed REASON FOR VISIT OB Triage PLAN OF CARE VITAL SIGNS MEDICATIONS Unknown Medications RESULTS No Results PROCEDURES No Known procedures INSTRUCTIONS MEDICATIONS ADMINISTERED No Known Medications MEDICAL (GENERAL) HISTORY Type Description Date Medical History psoriasis Medical History kidney stones 2015 Medical History childbirth Surgical History benign cyst removed from left eyelid 2008 Surgical History 2017 Hospitalization History child July 2016
--- OUTSIDE RECORDS SUMMARY | 2018-02-11 18:42 | XMS REPORT ---
Author Author JULES NESSA [facility] Address [address] [place] [address] Care Team Providers Care Him Specialist Name Role Phone JULESDAQUAN OLIVIERHANY Unavailable PROBLEMS Type Condition ICD9-CM Code IBA66-HN Code Onset Dates Condition Status SNOMED Code Problem care in third trimester Z34.93 Active 170391628 Problem Dyspepsia R10.13 Active 675491726 Problem Obesity affecting in first trimester O99.211 Active 877840924834 Problem Previous section complicating O34.219 Active 553315837 ALLERGIES Substance Reaction Event Type Date Status Codeine itching Drug Allergy Jan, Active ENCOUNTERS Encounter Location Date Diagnosis [place] [address] [address] Jan, [place] [address] [address] Jan, [place] [address] [address] Jan, screening for streptococcus B Z36.85 ; Third trimester Z34.93 and 36 weeks gestation of Z3A.36 [place] [address] [place] [id number] [place] [address] 78720- 7483 Dec, Third trimester Z34.93 ; Pelvic pain R10.2 and 34 weeks gestation of Z3A.34 [place] [address] [address]- [address] 30 Nov, 2017 BMI 45.0-49.9, adult Z68.42 ; Third trimester Z34.93 ; Encounter for immunization Z23 and 30 weeks gestation of Z3A.30 [place] [address] [address]- 74[address] Nov, [place] [address] [place] [address] 07978- 9737 Nov, 28 weeks gestation of Z3A.28 ; Previous section complicating O34.219 and care in third trimester Z34.93 [place] [address] [id number] [place] [address] 85404- 7751 Nov, [place] [address] [place] [id number] [place] [address] 52588- 1988 Oct, care, subsequent in second trimester Z34.82 ; 24 weeks gestation of Z3A.24 and BMI 45.0-49.9, adult Z68.42 [place] [address] [place] [address] [id number] [place] [address] 16188- 4017 08 Sep, 2017 care, subsequent in second trimester Z34.82 ; 19 weeks gestation of Z3A.19 and BMI 40.0-44.9, adult Z68.41 [place] [id number] [place] [address] 75929- 2398 12 Aug, 2017 Second trimester Z33.1 ; 15 weeks gestation of Z3A.15 and BMI 40.0-44.9, adult Z68.41 [place] [address] [place] [address] 33913- 0024 11 Jul, 2017 care, subsequent in first trimester Z34.81 ; Other specified disorders of amniotic fluid and membranes, first trimester, not applicable or unspecified O41.8X10 ; Other antepartum hemorrhage , first trimester O46.8X1 ; 10 weeks gestation of Z3A.10 and BMI 40.0- 44.9, adult Z68.41 [place] [id number] [place] [address] 54066- 3221 Jul, Threatened miscarriage O20.0 [address] [place] [address] 51838- 4932 June, Normal in multigravida Z34.80 ; First trimester Z34.90 ; 7 weeks gestation of Z3A.01 ; Previous section complicating O34.219 and BMI 40.0-44.9, adult Z68.41 [place] [address] [place] [id number] [place] [address] 47388- 3899 June, [place] [address] [place] [id number] [place] [address] 71165- 3191 May, Encounter for test Z32.00 [place] [address] 8[address]- 0371 Oct, Diarrhea, unspecified type R19.[address] [address]- [address] Oct, Dyspepsia R10.13 and Diarrhea, unspecified type R19.7 [place] [address] [place] [id number] [place] [address] 34657- 9473 Aug, Follow-up, , routine Z39.2 [place] [id number] [place] [address] 71606- 4478 Jul, 38 weeks gestation of Z3A.38 and Large for gestational age fetus affecting management of mother, third trimester, not applicable or unspecified fetus O36.63X0 [place] [id number] [place] [address] 68832- 9775 June, Normal first in third trimester Z34.03 and 37 weeks gestation of Z3A.37 [place] [address] [place] [id number] [place] [address] 60232- 3717 June, 36 weeks gestation of Z3A.36 and screening for streptococcus B Z36 [place] [id number] [place] [address] 68370- 9693 June, Normal first in third trimester Z34.03 and 35 weeks gestation of Z3A.35 [facility] [id number] [place] [address] [phone] June, Normal first in third trimester Z34.03 and 33 weeks gestation of Z3A.33 [facility] [place] [id number] [place] [address] [id number] May, 31 weeks gestation of Z3A.31 ; Normal first in third trimester Z34.03 and Encounter for immunization Z23 [facility] [id number] [place] [address] [id number] May, Normal first in third trimester Z34.03 and 29 weeks gestation of Z3A.29 [facility] [place] [address] [place] [id number] [place] [address] [id number] Mar, Normal first confirmed, currently in second trimester Z34.02 and 24 weeks gestation of Z3A.24 [facility] [place] [id number] [place] [address] [id number] Feb, Normal first confirmed, currently in second trimester Z34.02 and 20 weeks gestation of Z3A.20 [facility] [place] [id number] [place] [address] [id number] Feb, Normal first confirmed, currently in second trimester Z34.02 and 16 weeks gestation of Z3A.16 [facility] [address] [place] [address] [id number] Jan, Normal first confirmed, currently in first trimester Z34.01 and 13 weeks gestation of Z3A.13 [facility] [address] [place] [address] [id number] Dec, Normal first confirmed, currently in first trimester Z34.01 ; 7 weeks gestation of Z3A.01 and Encounter for immunization Z23 [facility] [address] [phone] Nov, test positive Z32.[address] [facility] [address] [id number] [id number] May, Kidney stone N20.0 [facility] [id number] [place] [address] [id number] May, Acute cystitis without hematuria N30.00 and Kidney stone N20.0 [facility] [address], [place] [address]- [address] Apr, [facility] [id number] [place] [address] [phone] [phone] Apr, 2015 Routine gynecological examination Z01.419 ; Encounter for Papanicolaou smear for cervical cancer screening Z12.4 ; Contraceptive management Z30.9 and Screening for STD sexually transmitted disease Z11.3 [facility] [address], [place] [address]- [address] 14 May, 2014 [facility] [address] [place] [id number] [place] [address] 34858 2546 13 May, 2014 [facility] [id number] [place] [address] [phone] Apr, [facility] [address] [place] [address] 44422 2546 Apr, [facility] [address] [place] [id number] [place] [address] 77263- 8557 May, [facility] [id number] [place] [address] [id number] Mar, [facility] [id number] [place] [address] [phone] Oct, [facility] [address] [place] [id number] [place] [address] [phone] Aug, [facility] [id number] [place] [address] [id number] Jul, [facility] [address] [place] [id number] [place] [address] [id number] Jul, [facility] [id number] [place] [address] [id number] Jul, [facility] [id number] [place] [address] [id number] Feb, [facility] [address] [place] [id number] [place] [address] [id number] Feb, [facility] [address], [place] [address]- [address] 09 Jan, 2011 IMMUNIZATIONS No Known Immunizations SOCIAL HISTORY Never Assessed REASON FOR VISIT OB 1wk f/u, ob urine dip in third trimester, previous --tcuppettRN PLAN OF CARE Activity Details Follow Up 1 Week Reason: Pending Test CULTURE, GROUP B STREP (VAGINAL) VITAL SIGNS Height 59.5 in 2018-01-25 Weight 237.7 lbs 2018-01-25 Temperature 98.5 degrees Fahrenheit 2018-01-25 Heart Rate 88 bpm 2018-01-25 Respiratory Rate 20 2018-01-25 BMI 47.206 kg/m2 2018-01-25 Blood pressure systolic 122 mmHg 2018-01-25 Blood pressure diastolic 78 mmHg 2018-01-25 MEDICATIONS Medication Instructions Dosage Frequency Start Date End Date Duration Status 28-0.8 MG Active RESULTS Name Result Date Reference Range UA OB DIP (IN HOUSE) 2018-01-25 Glucose negative Protein negative PROCEDURES Procedure Date Ordered Result Body Site URINE-NO MICRO Jan 25, 2018 LAB NOT BILLED BY [facility] Jan 25, 2018 INSTRUCTIONS MEDICATIONS ADMINISTERED No Known Medications MEDICAL (GENERAL) HISTORY Type Description Date Medical History psoriasis Medical History kidney stones 2015 Medical History childbirth Surgical History benign cyst removed from left eyelid 2008 Surgical History 2017 Hospitalization History child July 2016
--- OUTSIDE RECORDS SUMMARY | 2018-02-11 18:43 | XMS REPORT ---
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 Phone GRISELDA VICENTEY Unavailable PROBLEMS Type Condition ICD9-CM Code CCL96-TP Code Onset Dates Condition Status SNOMED Code Problem care, subsequent in second trimester Z34.82 Active 171120900 Problem Dyspepsia R10.13 Active 294084233 Problem Obesity affecting in first trimester O99.211 Active 170058964618 Problem Previous section complicating O34.219 Active 706858881 ALLERGIES Substance Reaction Event Type Date Status Codeine itching Drug Allergy Oct, Active ENCOUNTERS Encounter Location Date Diagnosis [place] [id number] [place] [address]- 9374 Nov, [place] [address] [place] [address] 14540- 0857 Oct, care, subsequent in second trimester Z34.82 ; 24 weeks gestation of Z3A.24 and BMI 45.0-49.9, adult Z68.42 [place] [address] [place] [id number] [place] [address] 21587- 1847 Sep, care, subsequent in second trimester Z34.82 ; 19 weeks gestation of Z3A.19 and BMI 40.0-44.9, adult Z68.41 [place] [address] [place] [address] 74761- 4747 12 Aug, 2017 Second trimester Z33.1 ; 15 weeks gestation of Z3A.15 and BMI 40.0-44.9, adult Z68.41 [place] [address] [place] [id number] [address] 11 Terry, 2018 care, subsequent in first trimester Z34.81 ; Other specified disorders of amniotic fluid and membranes, first trimester, not applicable or unspecified O41.8X10 ; Other antepartum hemorrhage , first trimester O46.8X1 ; 10 weeks gestation of Z3A.10 and BMI 40.0- 44.9, adult Z68.41 [place] [address] [address] Jul, Threatened miscarriage O20.[address] [address]- 6[address] June, Normal in multigravida Z34.80 ; First trimester Z34.90 ; 7 weeks gestation of Z3A.01 ; Previous section complicating O34.219 and BMI 40.0-44.9, adult Z68.41 [place] [address] [address]- 7192 June, [place] [address] [address]- [address]26 May, Encounter for test Z32.[address] [address]- 9534 Oct, Diarrhea, unspecified type R19.[address] [address]- 5244 Oct, Dyspepsia R10.13 and Diarrhea, unspecified type R19.7 [place] [address] 657[address]- 0145 Aug, Follow-up, , routine Z39.[address] [address]28- 3395 Jul, 38 weeks gestation of Z3A.38 and Large for gestational age fetus affecting management of mother, third trimester, not applicable or unspecified fetus O36.63X0 [address] [address]- 4413 June, Normal first in third trimester Z34.03 and 37 weeks gestation of Z3A.37 [facility] [address] [place] [address] 47129- 4252 June, 36 weeks gestation of Z3A.36 and screening for streptococcus B Z36 [facility] [address] [address] June, Normal first in third trimester Z34.03 and 35 weeks gestation of Z3A.35 [facility] [address] [id number] [place] [address] [id number] June, Normal first in third trimester Z34.03 and 33 weeks gestation of Z3A.33 [facility] [place] [id number] [place] [address], [place] [phone] May, 31 weeks gestation of Z3A.31 ; Normal first in third trimester Z34.03 and Encounter for immunization Z23 [facility] [id number] [place] [address] [id number] May, Normal first in third trimester Z34.03 and 29 weeks gestation of Z3A.29 [facility] [place] [id number] [place] [address], [place] [id number] Mar, Normal first confirmed, currently in second trimester Z34.02 and 24 weeks gestation of Z3A.24 [facility] [place] [id number] [place] [address], [place] [id number] Feb, Normal first confirmed, currently in second trimester Z34.02 and 20 weeks gestation of Z3A.20 [facility] [place] [id number] [place] [address], [place] [id number] Feb, Normal first confirmed, currently in second trimester Z34.02 and 16 weeks gestation of Z3A.16 [facility] [place] [id number] [place] [address], [place] [id number] Jan, Normal first confirmed, currently in first trimester Z34.01 and 13 weeks gestation of Z3A.13 [facility] [place] [id number] [place] [address], [place] [id number] 09 Nov, 2016 Normal first confirmed, currently in first trimester Z34.01 ; 7 weeks gestation of Z3A.01 and Encounter for immunization Z23 [facility] [id number] [place] [address] [id number] Nov, test positive Z32.01 [facility] [address] [id number] [id number] May, Kidney stone N20.0 [facility] [id number] [place] [address] [phone] May, Acute cystitis without hematuria N30.00 and Kidney stone N20.0 [facility] [address] [id number] [place] [address]20 2546 Apr, [place] [id number] [place] [address] [id number] Apr, Routine gynecological examination Z01.419 ; Encounter for Papanicolaou smear for cervical cancer screening Z12.4 ; Contraceptive management Z30.9 and Screening for STD sexually transmitted disease Z11.3 [facility] [address] [id number] [place] [address] 33267- 2886 14 May, 2014 [facility] [address] [id number] [place] [address] 33824- 0766 May, [facility] [id number] [place] [address] [phone] Apr, [facility] [address] [place] [id number] [place] [address] 43287 2544 Apr, [facility] [address] [place] [address] [id number] [place] [address] 11803 2546 May, [facility] [address] [facility] [id number] [id number] Mar, [facility] [address] [address] [id number] [place] [address] [phone] Oct, [facility] [id number] [place] [address] [id number] Aug, [facility] [address] [id number] [place] [address] [phone] Jul, [facility] [address] [facility] [id number] [place] [id number] Jul, [facility] [address] [facility] [id number] [place]INT[place] [phone] Jul, [facility] [address] [facility] [id number] POINT[place] [phone] Feb, [facility] [address] [facility] [id number] POINT[place] [phone] Feb, [facility] [address] [facility] [id number] [place] [address] Jan, IMMUNIZATIONS No Known Immunizations SOCIAL HISTORY Never Assessed REASON FOR VISIT OB 4wk f/u--tcuppettRN PLAN OF CARE Activity Details Follow Up 3 Weeks, 3 Weeks Reason: VITAL SIGNS Height 59.5 in 2017-11-07 Weight 226.8 lbs 2017-11-07 Temperature 98.2 degrees Fahrenheit 2017-11-07 Heart Rate 92 bpm 2017-11-07 Respiratory Rate 2017-11-07 BMI 45.041 kg/m2 2017-11-07 Blood pressure systolic 110 mmHg 2017-11-07 Blood pressure diastolic 72 mmHg 2017-11-07 MEDICATIONS Medication Instructions Dosage Frequency Start Date End Date Duration Status 28-0.8 MG Active RESULTS Name Result Date Reference Range UA OB DIP (IN HOUSE) 2017-11-07 Glucose negative Protein trace PROCEDURES Procedure Date Ordered Result Body Site URINE-NO MICRO Nov 07, 2017 INSTRUCTIONS MEDICATIONS ADMINISTERED No Known Medications MEDICAL (GENERAL) HISTORY Type Description Date Medical History psoriasis Medical History kidney stones 2015 Medical History childbirth Surgical History benign cyst removed from left eyelid 2008 Surgical History 2017 Hospitalization History child July 2016
--- OUTSIDE RECORDS SUMMARY | 2018-02-11 18:43 | XMS REPORT ---
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 Name Role Phone GRISELDA VICENTEY Unavailable PROBLEMS Type Condition ICD9-CM Code SVK05-GC Code Onset Dates Condition Status SNOMED Code Problem care, subsequent in second trimester Z34.82 Active 135086871 Problem Dyspepsia R10.13 Active 431281126 Problem Obesity affecting in first trimester O99.211 Active 702648558551 Problem Previous section complicating O34.219 Active 817898633 ALLERGIES No Information ENCOUNTERS Encounter Location Date Diagnosis [place] [address] [place] [address]- [address] Nov, [place] [address] [place] [address] 19287- 7172 18 Oct, 2017 care, subsequent in second trimester Z34.82 ; 24 weeks gestation of Z3A.24 and BMI 45.0-49.9, adult Z68.42 [place] [address] [address] [place] [id number] [address] 08 Sep, 2017 care, subsequent in second trimester Z34.82 ; 19 weeks gestation of Z3A.19 and BMI 40.0-44.9, adult Z68.41 [place] [address] [place] [id number] [place] [address] 16848- 4725 12 Aug, 2017 Second trimester Z33.1 ; 15 weeks gestation of Z3A.15 and BMI 40.0-44.9, adult Z68.41 [place] [address] [place] [id number] [address] Jul, care, subsequent in first trimester Z34.81 ; Other specified disorders of amniotic fluid and membranes, first trimester, not applicable or unspecified O41.8X10 ; Other antepartum hemorrhage , first trimester O46.8X1 ; 10 weeks gestation of Z3A.10 and BMI 40.0- 44.9, adult Z68.41 [place] [id number] [place] [address] 42140- 3676 Jul, Threatened miscarriage O20.[address] 18220- 1563 June, Normal in multigravida Z34.80 ; First trimester Z34.90 ; 7 weeks gestation of Z3A.01 ; Previous section complicating O34.219 and BMI 40.0-44.9, adult Z68.[address] 00196- 9732 June, [address] 27797- 4475 May, Encounter for test Z32.[address] 77684- 5095 Oct, Diarrhea, unspecified type R19.[address] 31898- 9260 Oct, Dyspepsia R10.13 and Diarrhea, unspecified type R19.[address] 44744- 3008 Aug, Follow-up, , routine Z39.[address] 65519- 5141 Jul, 38 weeks gestation of Z3A.38 and Large for gestational age fetus affecting management of mother, third trimester, not applicable or unspecified fetus O36.63X0 [place] [id number] [place] [address] 24442- 7339 June, Normal first in third trimester Z34.03 and [address]A.37 [facility] [address] [address] June, 36 weeks gestation of Z3A.36 and screening for streptococcus B Z36 [facility] [address], [place] [address]- 2546 June, Normal first in third trimester Z34.03 and 35 weeks gestation of Z3A.35 [facility] [id number] [place] [address] [phone] June, Normal first in third trimester Z34.03 and 33 weeks gestation of Z3A.33 [facility] [place] [id number] [place] [address] [phone] May, 31 weeks gestation of Z3A.31 ; Normal first in third trimester Z34.03 and Encounter for immunization Z23 [facility] [address] [id number] [place] [address] [id number] May, Normal first in third trimester Z34.03 and 29 weeks gestation of Z3A.29 [facility] [place] [address] [place] [id number] [place] [address] [id number] Mar, Normal first confirmed, currently in second trimester Z34.02 and 24 weeks gestation of Z3A.24 [facility] [place] [address] [place] [address] [id number] [place] [address], [place] [phone] Feb, Normal first confirmed, currently in second trimester Z34.02 and 20 weeks gestation of Z3A.20 [facility] [place] [address] [place] [address] [id number] [place] [address] [id number] Feb, Normal first confirmed, currently in second trimester Z34.02 and 16 weeks gestation of Z3A.16 [facility] [place] [address] [place] [id number] [place] [address] [id number] Jan, Normal first confirmed, currently in first trimester Z34.01 and 13 weeks gestation of Z3A.13 [facility] [place] [address] [place] [id number] [place] [address], [place] [phone] Dec, Normal first confirmed, currently in first trimester Z34.01 ; 7 weeks gestation of Z3A.01 and Encounter for immunization Z23 [facility] [address] [facility] [id number] [place] [id number] Nov, test positive Z32.01 [facility] JOSR [address] [facility] [address] [id number] [id number] May, Kidney stone N20.0 [facility] [id number] [place] [address] [id number] May, Acute cystitis without hematuria N30.00 and Kidney stone N20.0 [facility] [address] [place] [address] 27800- 8656 Apr, [facility] [address] [place] [address] [id number] [place] [address] [id number] Apr, Routine gynecological examination Z01.419 ; Encounter for Papanicolaou smear for cervical cancer screening Z12.4 ; Contraceptive management Z30.9 and Screening for STD sexually transmitted disease Z11.3 [facility] [address] [id number] [place] [address] 91076- 7776 14 May, [address] [facility] [id number] [place] [address] 01302- 0847 May, [facility] [id number] [place] [address] [id number] Apr, [facility] [id number] [place] [address] 77251- 8172 Apr, [facility] [id number] [place] [address] 40679 2546 May, [facility] [address] [facility] [id number] [place] [phone] Mar, [facility] [id number] [place] [address] [id number] Oct, [facility] [id number] [place] [address] [id number] Aug, [facility] [id number] [id number] Jul, [facility] [address] [place] [id number] [place] [phone] Jul, [facility] [address] [facility] [id number] [place] [phone] Jul, [facility] [address] [facility] [id number] [id number] Feb, [facility] [address] [facility] [id number] [place] [id number] Feb, [facility] [address] [facility] [id number] [place] [address] Jan, IMMUNIZATIONS No Known Immunizations SOCIAL HISTORY Never Assessed REASON FOR VISIT triage PLAN OF CARE VITAL SIGNS MEDICATIONS Unknown Medications RESULTS No Results PROCEDURES No Known procedures INSTRUCTIONS MEDICATIONS ADMINISTERED No Known Medications MEDICAL (GENERAL) HISTORY Type Description Date Medical History psoriasis Medical History kidney stones 2015 Medical History childbirth Surgical History benign cyst removed from left eyelid 2008 Surgical History 2017 Hospitalization History child July 2016
--- OUTSIDE RECORDS SUMMARY | 2018-02-11 18:43 | XMS REPORT ---
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 [employer] Name Role Phone GRISELDA VICENTEY Unavailable PROBLEMS Type Condition ICD9-CM Code BMM44-EM Code Onset Dates Condition Status SNOMED Code Problem care in third trimester Z34.93 Active 815357917 Problem Dyspepsia R10.13 Active 780795129 Problem Obesity affecting in first trimester O99.211 Active 125073620681 Problem Previous section complicating O34.219 Active 802502454 ALLERGIES No Information ENCOUNTERS Encounter Location Date Diagnosis [place] [id number] [place] [address] 99710- 8766 Dec, [place] [id number] [place] [address] 17064- 6871 30 Nov, 2017 BMI 45.0-49.9, adult Z68.42 ; Third trimester Z34.93 ; Encounter for immunization Z23 and 30 weeks gestation of Z3A.30 [place] [id number] [place] [address] 57160- 9498 17 Nov, 2017 [place] [id number] [place] [address] 37334- 3550 16 Nov, 2017 28 weeks gestation of Z3A.28 ; Previous section complicating O34.219 and care in third trimester Z34.93 [place] [id number] [place] [address] 01757- 3859 11 Nov, 2017 [place] [id number] [place] [address] 99727- 7756 18 Oct, 2017 care, subsequent in second trimester Z34.82 ; 24 weeks gestation of Z3A.24 and BMI 45.0-49.9, adult Z68.42 [place] [address] [address] 08 Sep, 2017 care, subsequent in second trimester Z34.82 ; 19 weeks gestation of Z3A.19 and BMI 40.0-44.9, adult Z68.41 [place] [id number] [place] [address] 39652- 7341 12 Aug, 2017 Second trimester Z33.1 ; 15 weeks gestation of Z3A.15 and BMI 40.0-44.9, adult Z68.41 [place] [id number] [place] [address] 36212- 6325 11 Jul, 2017 care, subsequent in first trimester Z34.81 ; Other specified disorders of amniotic fluid and membranes, first trimester, not applicable or unspecified O41.8X10 ; Other antepartum hemorrhage , first trimester O46.8X1 ; 10 weeks gestation of Z3A.10 and BMI 40.0- 44.9, adult Z68.41 [place] [address] [place] [address] 74221- 2853 Jul, Threatened miscarriage O20.0 [place] [id number] [place] [address] 27766- 6411 June, Normal in multigravida Z34.80 ; First trimester Z34.90 ; 7 weeks gestation of Z3A.01 ; Previous section complicating O34.219 and BMI 40.0-44.9, adult Z68.41 [place] [address] [place] [address] 14247- 6528 June, [place] [id number] [place] [address] 38107- 8111 May, Encounter for test Z32.00 [place] [id number] [place] [address] 33328- 7492 08 Oct, 2016 Diarrhea, unspecified type R19.7 [place] [id number] [place] [address] 42746- 2026 06 Oct, 2016 Dyspepsia R10.13 and Diarrhea, unspecified type R19.7 [place] [id number] [place] [address] 71718- 2750 Aug, Follow-up, , routine Z39.2 [place] [address] 16554- 9207 Jul, 38 weeks gestation of Z3A.38 and Large for gestational age fetus affecting management of mother, third trimester, not applicable or unspecified fetus O36.63X0 [address] 40232- 6638 June, Normal first in third trimester Z34.03 and 37 weeks gestation of Z3A.37 [place] [id number] [place] [address] 88784- 6580 June, 36 weeks gestation of Z3A.36 and screening for streptococcus B Z36 [place] [address] [place] [address] 21866- 7960 June, Normal first in third trimester Z34.03 and 35 weeks gestation of Z3A.35 [place] [address] [place] [address] [id number] June, Normal first in third trimester Z34.03 and 33 weeks gestation of Z3A.[address] [id number] May, 31 weeks gestation of Z3A.31 ; Normal first in third trimester Z34.03 and Encounter for immunization Z23 [address] [id number] May, Normal first in third trimester Z34.03 and 29 weeks gestation of Z3A.29 [place] [id number] [place] [address] [id number] Mar, Normal first confirmed, currently in second trimester Z34.02 and 24 weeks gestation of Z3A.24 [address] [id number] Feb, Normal first confirmed, currently in second trimester Z34.02 and 20 weeks gestation of Z3A.[address] [place] [address] [id number] Feb, Normal first confirmed, currently in second trimester Z34.02 and 16 weeks gestation of Z3A.16 [place] [id number] [place] [address] [id number] Jan, Normal first confirmed, currently in first trimester Z34.01 and 13 weeks gestation of Z3A.13 [place] [address] [place] [address] [id number] Dec, Normal first confirmed, currently in first trimester Z34.01 ; 7 weeks gestation of Z3A.01 and Encounter for immunization Z23 [place] [id number] [place] [address] [phone] Nov, test positive Z32.[address] [facility] [address] [id number] [id number] May, Kidney stone N20.0 [place] [id number] [place] [address] [id number] May, Acute cystitis without hematuria N30.00 and Kidney stone N20.0 [place] [address] [place] [address] 60459- 4485 Apr, [place] [id number] [place] [address] [phone] Apr, Routine gynecological examination Z01.419 ; Encounter for Papanicolaou smear for cervical cancer screening Z12.4 ; Contraceptive management Z30.9 and Screening for STD sexually transmitted disease Z11.3 [place] [address] [id number]- 8160 14 May, 2014 [place] [address] [id number]- 5965 May, [address] [id number] Apr, [facility] [address] [facility] [id number] [address] 2546 Apr, [facility] [address] [id number], [place] [address]- 2546 May, [facility] [id number] [phone] Mar, [facility] [id number] [place] [address] [id number] Oct, [facility] [id number] [place] [address] [id number] Aug, [facility] [id number] [place] [address] [id number] Jul, [facility] [id number] [place] [address] [id number] Jul, [facility] [id number] [place] [address] [id number] Jul, [facility] [id number] [place] [address] [phone] Feb, [facility] [id number] [place] [address] [phone] Feb, [facility] [address] [id number], [place] [address] 2546 Jan, IMMUNIZATIONS Vaccine Route Administration Date Status FLULAVAL QUAD 0.5ML (6 MO & UP) 2018 IM Intramuscular Dec 19, 2017 Administered TDAP (BOOSTRIX) IM Intramuscular Dec 19, 2017 Administered SOCIAL HISTORY Never Assessed REASON FOR VISIT OB 2wk f/u, ob urine dip, flu shot, tdap-awoods PLAN OF CARE Activity Details Follow Up 4 Weeks Reason: VITAL SIGNS Height 59.5 in 2017-12-19 Weight 233.8 lbs 2017-12-19 Temperature 98.6 degrees Fahrenheit 2017-12-19 Heart Rate 94 bpm 2017-12-19 Respiratory Rate 18 2017-12-19 BMI 46.432 kg/m2 2017-12-19 Blood pressure systolic 112 mmHg 2017-12-19 Blood pressure diastolic 64 mmHg 2017-12-19 MEDICATIONS Medication Instructions Dosage Frequency Start Date End Date Duration Status 28-0.8 MG Active RESULTS Name Result Date Reference Range UA OB DIP (IN HOUSE) 2017-12-19 Glucose neg Protein neg PROCEDURES Procedure Date Ordered Result Body Site URINE-NO MICRO Dec 19, 2017 TDAP (BOOSTRIX) Dec 19, 2017 SINGLE IMMUNIZATION ADMIN Dec 19, 2017 FLULAVAL QUAD 0.5ML (6 MO AND UP) 2017Dec 19, 2017 IMMUNIZATION ADMIN, EACH ADD (please include units) Dec 19, 2017 INSTRUCTIONS MEDICATIONS ADMINISTERED No Known Medications MEDICAL (GENERAL) HISTORY Type Description Date Medical History psoriasis Medical History kidney stones 2015 Medical History childbirth Surgical History benign cyst removed from left eyelid 2008 Surgical History 2017 Hospitalization History child July 2016
--- OUTSIDE RECORDS SUMMARY | 2018-02-11 18:43 | XMS REPORT ---
Author Author JULESNESSA [facility] Address [address] [place] [address] Care Team Providers Care Customer Experience Strategist Name Role Phone GRISELDA VICENTEY Unavailable PROBLEMS Type Condition ICD9-CM Code REM38-FI Code Onset Dates Condition Status SNOMED Code Problem care in third trimester Z34.93 Active 426737162 Problem Dyspepsia R10.13 Active 589931654 Problem Obesity affecting in first trimester O99.211 Active 747591618202 Problem Previous section complicating O34.219 Active 095139315 ALLERGIES No Information ENCOUNTERS Encounter Location Date Diagnosis [place] [address] 6[address]- 6921 Jan, [place] [address] [place] [address] [id number] [place] [address] 20827- 8656 Jan, [place] [address] 80830- 6631 Jan, [place] [address] [place] [address] [id number] [place] [address] 89577- 2000 Dec, Third trimester Z34.93 ; Pelvic pain R10.2 and 34 weeks gestation of Z3A.34 [place] [address] [id number] [place] [address] 86314- 4732 30 Nov, 2017 BMI 45.0-49.9, adult Z68.42 ; Third trimester Z34.93 ; Encounter for immunization Z23 and 30 weeks gestation of Z3A.30 [place] [address] [id number] [place] [address] 82573- 3155 Nov, [place] [address] 51689- 0414 Nov, 28 weeks gestation of Z3A.28 ; Previous section complicating O34.219 and care in third trimester Z34.93 [place] [address] [id number] [place] [address] 68799- 0836 Nov, [place] [address] [address] [id number] [place] [address] 96125- 5247 Oct, care, subsequent in second trimester Z34.82 ; 24 weeks gestation of Z3A.24 and BMI 45.0-49.9, adult Z68.42 [place] [address] [id number] [place] [address] 11380- 9384 08 Sep, 2017 care, subsequent in second trimester Z34.82 ; 19 weeks gestation of Z3A.19 and BMI 40.0-44.9, adult Z68.41 [place] [id number] [place] [address] 86281- 5748 Aug, Second trimester Z33.1 ; 15 weeks gestation of Z3A.15 and BMI 40.0-44.9, adult Z68.41 [place] [address] [place] [address] 81273- 0315 11 Jul, 2017 care, subsequent in first trimester Z34.81 ; Other specified disorders of amniotic fluid and membranes, first trimester, not applicable or unspecified O41.8X10 ; Other antepartum hemorrhage , first trimester O46.8X1 ; 10 weeks gestation of Z3A.10 and BMI 40.0- 44.9, adult Z68.41 [place] [address] [place] [address] 35877- 2389 Jul, Threatened miscarriage O20.[address] 58746- 4156 June, Normal in multigravida Z34.80 ; First trimester Z34.90 ; 7 weeks gestation of Z3A.01 ; Previous section complicating O34.219 and BMI 40.0-44.9, adult Z68.41 [place] [address] [address] [id number] [place] [address] 20609- 5435 June, [place] [address] [place] [id number] [place] [address] 40232- 7993 May, Encounter for test Z32.00 [place] [address] [address] [id number] [place] [address] 09374- 8552 Oct, Diarrhea, unspecified type R19.7 [place] [address] 31502- 0097 Oct, Dyspepsia R10.13 and Diarrhea, unspecified type R19.[address] 85730- 8778 Aug, Follow-up, , routine Z39.2 [place] [id number] [place] [address] 79494- 8774 Jul, 38 weeks gestation of Z3A.38 and Large for gestational age fetus affecting management of mother, third trimester, not applicable or unspecified fetus O36.63X0 [place] [id number] [place] [address] 60783- 7199 June, Normal first in third trimester Z34.03 and 37 weeks gestation of Z3A.37 [place] [id number] [place] [address] 45350- 4624 June, 36 weeks gestation of Z3A.36 and screening for streptococcus B Z36 [place] [id number] [place] [address] 38029- 6242 June, Normal first in third trimester Z34.03 and 35 weeks gestation of Z3A.35 [facility] [id number] [place] [address] [phone] June, Normal first in third trimester Z34.03 and 33 weeks gestation of Z3A.33 [facility] [id number] [place] [address] [id number] May, 31 weeks gestation of Z3A.31 ; Normal first in third trimester Z34.03 and Encounter for immunization Z23 [facility] [place] [id number] [place] [address] [id number] May, Normal first in third trimester Z34.03 and 29 weeks gestation of Z3A.29 [facility] [id number] [place] [address] [id number] Mar, Normal first confirmed, currently in second trimester Z34.02 and 24 weeks gestation of Z3A.24 [facility] [place] [id number] [place] [address] [id number] Feb, Normal first confirmed, currently in second trimester Z34.02 and 20 weeks gestation of Z3A.20 [facility] [place] [id number] [place] [address] [id number] Feb, Normal first confirmed, currently in second trimester Z34.02 and 16 weeks gestation of Z3A.16 [facility] [place] [id number] [place] [address] [id number] Jan, Normal first confirmed, currently in first trimester Z34.01 and 13 weeks gestation of Z3A.13 [facility] [place] [id number] [place] [address] [id number] Dec, Normal first confirmed, currently in first trimester Z34.01 ; 7 weeks gestation of Z3A.01 and Encounter for immunization Z23 [facility] [address] [place] [address] [id number] Nov, test positive Z32.[address] [facility] [address] [id number] [id number] May, Kidney stone N20.0 [facility] [address] [place] [address] [id number] May, Acute cystitis without hematuria N30.00 and Kidney stone N20.0 [facility] [address] [address] Apr, [facility] [place] [id number] [place] [address] [phone] Apr, Routine gynecological examination Z01.419 ; Encounter for Papanicolaou smear for cervical cancer screening Z12.4 ; Contraceptive management Z30.9 and Screening for STD sexually transmitted disease Z11.3 [place] [id number] [place] [address] 70881- 3036 14 May, 2014 [place] [address] [place] [id number] [place] [address] 42162- 4806 May, [facility] [id number] [place] [address] [id number] Apr, [place] [address] [id number] [place] [address] 75753- 3306 Apr, [place] [address] [id number] [place] [address] 36868 2546 May, [facility] [id number] [place] [address] [id number] Mar, [facility] [id number] [place] [address] [id number] Oct, [facility] [id number] [place] [address] [id number] Aug, [facility] [id number] [place] [address] [id number] Jul, [facility] [id number] [place] [address] [id number] Jul, [facility] [id number] [place] [address] [id number] Jul, [facility] [id number] [place] [address] [id number] Feb, [facility] [address] [place] [id number] [place] [address] [phone] Feb, [place] [address] [id number] [place] [address] 30295- 2546 Jan, IMMUNIZATIONS No Known Immunizations SOCIAL HISTORY Never Assessed REASON FOR VISIT OB 4wk f/u, ob urine dip-awoods PLAN OF CARE Activity Details Follow Up 1 Week, 1 Week Reason: VITAL SIGNS Height 59.5 in 2018-01-16 Weight 236.8 lbs 2018-01-16 Temperature 98.4 degrees Fahrenheit 2018-01-16 Heart Rate 100 bpm 2018-01-16 Respiratory Rate 18 2018-01-16 BMI 47.027 kg/m2 2018-01-16 Blood pressure systolic 118 mmHg 2018-01-16 Blood pressure diastolic 70 mmHg 2018-01-16 MEDICATIONS Medication Instructions Dosage Frequency Start Date End Date Duration Status 28-0.8 MG Active RESULTS Name Result Date Reference Range UA OB DIP (IN HOUSE) 2018-01-16 Glucose neg Protein trace UA LONG DIP (IN HOUSE) 2018-01-16 Lot # [id number] Exp date 10/2018 Clarity sl cloudy Color yellow Odor GLU neg ANA MARÍA neg KET neg SG 1.020 BLO trace-intact pH 7.0 Protein neg URO 0.2 NIT neg STEFANI neg Lot # Exp date PROCEDURES Procedure Date Ordered Result Body Site URINE-NO MICRO Jan 16, 2018 URINALYSIS, AUTO, W/O SCOPE Jan 16, 2018 INSTRUCTIONS MEDICATIONS ADMINISTERED No Known Medications MEDICAL (GENERAL) HISTORY Type Description Date Medical History psoriasis Medical History kidney stones 2015 Medical History childbirth Surgical History benign cyst removed from left eyelid 2008 Surgical History 2017 Hospitalization History child July 2016
--- OUTSIDE RECORDS SUMMARY | 2018-02-11 18:44 | XMS REPORT ---
Author Author JULESNESSA [facility] Address [address] [place] [address] Care Team Providers Care Shopper Name Role Phone GRISELDA VICENTEY Unavailable PROBLEMS Type Condition ICD9-CM Code [id number] Code Onset Dates Condition Status SNOMED Code Problem care, subsequent in second trimester Z34.82 Active 217746205 Problem Dyspepsia R10.13 Active 214966567 Problem Obesity affecting in first trimester O99.211 Active 143967002813 Problem Previous section complicating O34.219 Active 070700354 ALLERGIES Substance Reaction Event Type Date Status Codeine itching Drug Allergy Jul, Active ENCOUNTERS Encounter Location Date Diagnosis [place] [address] [place] [address] 24504- 4615 Oct, [place] [address] [place] [id number] [place] [address] 70757- 9518 Sep, care, subsequent in second trimester Z34.82 ; 19 weeks gestation of Z3A.19 and BMI 40.0-44.9, adult Z68.41 [place] [address] [place] [id number] [place] [address] 36687- 5464 12 Aug, 2017 Second trimester Z33.1 ; 15 weeks gestation of Z3A.15 and BMI 40.0-44.9, adult Z68.41 [place] [address] [place] [address] 53636- 1328 11 Jul, 2017 care, subsequent in first trimester Z34.81 ; Other specified disorders of amniotic fluid and membranes, first trimester, not applicable or unspecified O41.8X10 ; Other antepartum hemorrhage , first trimester O46.8X1 ; 10 weeks gestation of Z3A.10 and BMI 40.0- 44.9, adult Z68.41 [place] [address] [place] [id number] [place] [address] 32458- 8354 05 Jul, 2017 Threatened miscarriage O20.0 [place] [address] 25770- 0614 16 Jun, 2017 Normal in multigravida Z34.80 ; First trimester Z34.90 ; 7 weeks gestation of Z3A.01 ; Previous section complicating O34.219 and BMI 40.0-44.9, adult Z68.41 [place] [address] [place] [id number] [place] [address] 34469- 2673 June, [place] [address] 26362- 3830 May, Encounter for test Z32.[address] 73237- 3165 Oct, Diarrhea, unspecified type R19.7 [place] [address] [place] [id number] [place] [address] 26039- 3917 Oct, Dyspepsia R10.13 and Diarrhea, unspecified type R19.7 [place] [address] [place] [id number] [place] [address] 12312- 8787 Aug, Follow-up, , routine Z39.2 [place] [address] [place] [id number] [place] [address] 31856- 7998 Jul, 38 weeks gestation of Z3A.38 and Large for gestational age fetus affecting management of mother, third trimester, not applicable or unspecified fetus O36.63X0 [place] [address] [place] [id number] [place] [address] 36817- 1802 June, Normal first in third trimester Z34.03 and 37 weeks gestation of Z3A.37 [place] [address] [place] [id number] [place] [address] 12180- 3530 June, 36 weeks gestation of Z3A.36 and screening for streptococcus B Z36 [facility] [address] [facility] [id number] [address]9623[address]- [address]187 June, Normal first in third trimester Z34.03 and 35 weeks gestation of Z3A.35 [address] [address] June, Normal first in third trimester Z34.03 and 33 weeks gestation of Z3A.33 [address]100[place] [id number] May, 31 weeks gestation of Z3A.31 ; Normal first in third trimester Z34.03 and Encounter for immunization Z23 [address] [place] [id number] May, Normal first in third trimester Z34.03 and 29 weeks gestation of Z3A.29 [address]100[place] [id number] Mar, Normal first confirmed, currently in second trimester Z34.02 and 24 weeks gestation of Z3A.24 [address]100[place] [id number] Feb, Normal first confirmed, currently in second trimester Z34.02 and 20 weeks gestation of Z3A.20 [address]100[place] [id number] Feb, Normal first confirmed, currently in second trimester Z34.02 and 16 weeks gestation of Z3A.16 [address] [id number] Jan, Normal first confirmed, currently in first trimester Z34.01 and 13 weeks gestation of Z3A.13 [address]100[place] [id number] Dec, Normal first confirmed, currently in first trimester Z34.01 ; 7 weeks gestation of Z3A.01 and Encounter for immunization Z23 [place] [id number] [id number] Nov, test positive Z32.01 [facility] [address] [id number] [place] [id number] May, Kidney stone N20.0 [facility] [id number] [place] [id number] May, Acute cystitis without hematuria N30.00 and Kidney stone N20.0 [facility] [address], [place] [address]- 5883 Apr, [facility] [id number] [place] [id number] Apr, Routine gynecological examination Z01.419 ; Encounter for Papanicolaou smear for cervical cancer screening Z12.4 ; Contraceptive management Z30.9 and Screening for STD sexually transmitted disease Z11.3 [facility] [address], [place] [address]- 9049 14 May, 2014 [facility] [address]100[place] [address] May, [facility] [id number] [place] [id number] Apr, [facility] [address] [address]- 4068 Apr, [facility] [address]100[place], [place] [address]- 6222 May, [facility] [address] [facility] [id number] [place] [id number] Mar, [facility] [id number] [place] [id number] Oct, [facility] [address] [id number] [place] [id number] Aug, [facility] [id number] [place] [id number] Jul, [facility] [id number] [place] [id number] Jul, [facility] [id number] [place] [id number] Jul, [facility] [address] [place] [id number] [place] [id number] Feb, [facility] [address] [facility] [id number] [place] [id number] Feb, [facility] [address] [facility] [id number] [place] [address]- 4486 Jan, IMMUNIZATIONS No Known Immunizations SOCIAL HISTORY Never Assessed REASON FOR VISIT OB f/u--tcuppettRN PLAN OF CARE Activity Details Follow Up 4 Weeks, 4 Weeks Reason: VITAL SIGNS Height 59.5 in 2017-07-31 Weight 216.1 lbs 2017-07-31 Temperature 98.4 degrees Fahrenheit 2017-07-31 Heart Rate 102 bpm 2017-07-31 Respiratory Rate 18 2017-07-31 BMI 42.916 kg/m2 2017-07-31 Blood pressure systolic 122 mmHg 2017-07-31 Blood pressure diastolic 68 mmHg 2017-07-31 MEDICATIONS Medication Instructions Dosage Frequency Start Date End Date Duration Status 28-0.8 MG Active RESULTS Name Result Date Reference Range UA OB DIP (IN HOUSE) 2017-07-31 Glucose negative Protein negative Ultrasound : OB, Follow-up 2017-08-18 PROCEDURES Procedure Date Ordered Result Body Site URINE-NO MICRO July 31, 2017 INSTRUCTIONS MEDICATIONS ADMINISTERED No Known Medications MEDICAL (GENERAL) HISTORY Type Description Date Medical History psoriasis Medical History kidney stones 2015 Medical History childbirth Surgical History benign cyst removed from left eyelid 2008 Surgical History 2017 Hospitalization History child July 2016
--- OUTSIDE RECORDS SUMMARY | 2018-02-11 18:44 | XMS REPORT ---
Author Author JULESNESSA [facility] Address [address] [place] [address] Care Team Providers Care Staff Scientist Name Role Phone GRISELDA VICENTEY Unavailable PROBLEMS Type Condition ICD9-CM Code [id number] Code Onset Dates Condition Status SNOMED Code Problem care, subsequent in second trimester Z34.82 Active 114135123 Problem Dyspepsia R10.13 Active 373174248 Problem Obesity affecting in first trimester O99.211 Active 822548085856 Problem Previous section complicating O34.219 Active 515759271 ALLERGIES Substance Reaction Event Type Date Status Codeine itching Drug Allergy June, Active ENCOUNTERS Encounter Location Date Diagnosis [place] [address] [place] [address] 87944- 9696 Oct, [place] [address] [place] [id number] [place] [address] 35349- 7305 Sep, care, subsequent in second trimester Z34.82 ; 19 weeks gestation of Z3A.19 and BMI 40.0-44.9, adult Z68.41 [place] [address] [place] [address] 52279- 9818 12 Aug, 2017 Second trimester Z33.1 ; 15 weeks gestation of Z3A.15 and BMI 40.0-44.9, adult Z68.41 [place] [address] [place] [address] 88995- 2141 11 Jul, 2017 care, subsequent in first trimester Z34.81 ; Other specified disorders of amniotic fluid and membranes, first trimester, not applicable or unspecified O41.8X10 ; Other antepartum hemorrhage , first trimester O46.8X1 ; 10 weeks gestation of Z3A.10 and BMI 40.0- 44.9, adult Z68.41 [place] [address] [place] [address] [place] [address] 41229- 4932 05 Jul, 2017 Threatened miscarriage O20.0 [place] [address] 62690- 6692 16 Jun, 2017 Normal in multigravida Z34.80 ; First trimester Z34.90 ; 7 weeks gestation of Z3A.01 ; Previous section complicating O34.219 and BMI 40.0-44.9, adult Z68.41 [place] [address] [place] [id number] [place] [address] 33983- 1944 June, [place] [address] 43414- 1499 May, Encounter for test Z32.[address] 89367- 4223 Oct, Diarrhea, unspecified type R19.7 [place] [address] [place] [id number] [place] [address] 32688- 5008 Oct, Dyspepsia R10.13 and Diarrhea, unspecified type R19.7 [place] [address] [place] [id number] [place] [address] 89441- 9740 Aug, Follow-up, , routine Z39.2 [place] [address] [place] [id number] [place] [address] 81757- 1742 Jul, 38 weeks gestation of Z3A.38 and Large for gestational age fetus affecting management of mother, third trimester, not applicable or unspecified fetus O36.63X0 [place] [address] [place] [id number] [place] [address] 92386- 5185 June, Normal first in third trimester Z34.03 and 37 weeks gestation of Z3A.37 [place] [address] [place] [id number] [place] [address] 33555- 3143 June, 36 weeks gestation of Z3A.36 and screening for streptococcus B Z36 [facility] [address] [facility] [id number] 45140371- 9926 June, Normal first in third trimester Z34.03 and 35 weeks gestation of Z3A.35 [address]00565100[place], [place] [address] June, Normal first in third trimester Z34.03 and 33 weeks gestation of Z3A.33 [address]00565100[place] [address] May, 31 weeks gestation of Z3A.31 ; Normal first in third trimester Z34.03 and Encounter for immunization Z23 [address] [place] [address] [id number] May, Normal first in third trimester Z34.03 and 29 weeks gestation of Z3A.29 [address]005[address]100[place] [id number] Mar, Normal first confirmed, currently in second trimester Z34.02 and 24 weeks gestation of Z3A.24 [address]005[address]100[place], [place] [id number] Feb, Normal first confirmed, currently in second trimester Z34.02 and 20 weeks gestation of Z3A.20 [address]00565100[place], [place] [address] Feb, Normal first confirmed, currently in second trimester Z34.02 and 16 weeks gestation of Z3A.16 [address]005[address]100[place], [place] [address] Jan, Normal first confirmed, currently in first trimester Z34.01 and 13 weeks gestation of Z3A.13 [address]005[address]100[place] [id number] Dec, Normal first confirmed, currently in first trimester Z34.01 ; 7 weeks gestation of Z3A.01 and Encounter for immunization Z23 [place] [id number] [id number] Nov, test positive Z32.01 [facility] [address] [id number] [place] [id number] May, Kidney stone N20.0 [facility] [id number], [place] [id number] May, Acute cystitis without hematuria N30.00 and Kidney stone N20.0 [facility] [address]00565100[place], [place] [address]- 0766 Apr, [facility] [id number][place] [id number] Apr, Routine gynecological examination Z01.419 ; Encounter for Papanicolaou smear for cervical cancer screening Z12.4 ; Contraceptive management Z30.9 and Screening for STD sexually transmitted disease Z11.3 [facility] [address]00565100[place], [place] [address]- 2018 14 May, 2014 [facility] [address]65100[place] [address]- 5737 May, [facility] [id number], [place] [id number] Apr, [facility] [address]65100[place], [place] 55699339- 4249 Apr, [facility] [address]00565100[place], [place] [address]- 4073 May, [facility] [address] [facility] [id number] [id number] Mar, [facility] [id number], [place] [id number] Oct, [facility] [address] [id number], [place] [id number] Aug, [facility] [id number], [place] [id number] Jul, [facility] [id number], [place] [id number] Jul, [facility] [id number], [place] [id number] Jul, [facility] [address] [place] [id number] [place] [id number] Feb, [facility] [address] [facility] [id number] [place] [id number] Feb, [facility] [address] [facility] [id number] [place] [address]- 1816 Jan, IMMUNIZATIONS No Known Immunizations SOCIAL HISTORY Never Assessed REASON FOR VISIT OB-intake. [facility] PLAN OF CARE Activity Details Follow Up 4W, 4 Weeks Reason: VITAL SIGNS Height 59.5 in 2017-07-05 Weight 217 lbs 2017-07-05 Temperature 97.3 degrees Fahrenheit 2017-07-05 Heart Rate 68 bpm 2017-07-05 Respiratory Rate 18 2017-07-05 BMI 43.095 kg/m2 2017-07-05 Blood pressure systolic 120 mmHg 2017-07-05 Blood pressure diastolic 66 mmHg 2017-07-05 MEDICATIONS Medication Instructions Dosage Frequency Start Date End Date Duration Status 28-0.8 MG Active RESULTS No Results PROCEDURES Procedure Date Ordered Result Body Site URINALYSIS, AUTO, W/O SCOPE July 05, 2017 Bacterial Vaginosis In House July 05, 2017 No Charge July 05, 2017 LAB NOT BILLED BY [facility] July 05, 2017 VENIPUNCT, ROUTINE* July 05, 2017 DRUG TEST PRSMV DIR OPT OBS July 05, 2017 INSTRUCTIONS MEDICATIONS ADMINISTERED No Known Medications MEDICAL (GENERAL) HISTORY Type Description Date Medical History psoriasis Medical History kidney stones 2015 Medical History childbirth Surgical History benign cyst removed from left eyelid 2008 Surgical History 2017 Hospitalization History child July 2016
--- OUTSIDE RECORDS SUMMARY | 2018-02-11 18:44 | XMS REPORT ---
Author Author JULES NESSA [facility] Address [address] [place] [address] Care Team Providers Care Drum Worker Name Role Phone JULESDAQUAN OLIVIERHANY Unavailable PROBLEMS Type Condition ICD9-CM Code TQL08-NU Code Onset Dates Condition Status SNOMED Code Problem care, subsequent in second trimester Z34.82 Active 396792177 Problem Dyspepsia R10.13 Active 143121798 Problem Obesity affecting in first trimester O99.211 Active 453895704112 Problem Previous section complicating O34.219 Active 274085501 ALLERGIES No Information ENCOUNTERS Encounter Location Date Diagnosis [address] [place] [address] 42022- 1932 Oct, [place] [id number] [place] [address] 35862- 6777 Sep, care, subsequent in second trimester Z34.82 ; 19 weeks gestation of Z3A.19 and BMI 40.0-44.9, adult Z68.41 [address] [place] [address] 78283- 8002 12 Aug, 2017 Second trimester Z33.1 ; 15 weeks gestation of Z3A.15 and BMI 40.0-44.9, adult Z68.41 [address] [place] [address] 38551- 8046 11 Jul, 2017 care, subsequent in first trimester Z34.81 ; Other specified disorders of amniotic fluid and membranes, first trimester, not applicable or unspecified O41.8X10 ; Other antepartum hemorrhage , first trimester O46.8X1 ; 10 weeks gestation of Z3A.10 and BMI 40.0- 44.9, adult Z68.41 [place] [id number] [place] [address] 44373- 8988 Jul, Threatened miscarriage O20.0 [place] [address] 58966- 6134 June, Normal in multigravida Z34.80 ; First trimester Z34.90 ; 7 weeks gestation of Z3A.01 ; Previous section complicating O34.219 and BMI 40.0-44.9, adult Z68.41 [place] [address] [place] [id number] [place] [address] 40762- 8898 June, [place] [address] [place] [id number] [place] [address] 59849- 9890 May, Encounter for test Z32.00 [place] [address] 77701- 8682 Oct, Diarrhea, unspecified type R19.7 [place] [address] 03176- 8604 Oct, Dyspepsia R10.13 and Diarrhea, unspecified type R19.7 [place] [id number] [place] [address] 14968- 3959 Aug, Follow-up, , routine Z39.2 [place] [address] [place] [id number] [place] [address] 24095- 5377 Jul, 38 weeks gestation of Z3A.38 and Large for gestational age fetus affecting management of mother, third trimester, not applicable or unspecified fetus O36.63X0 [place] [address] [place] [id number] [place] [address] 57448- 9317 June, Normal first in third trimester Z34.03 and 37 weeks gestation of Z3A.37 [place] [address] [place] [address] [place] [address] 72758- 3578 June, 36 weeks gestation of Z3A.36 and screening for streptococcus B Z36 [address] [place] [address]- 7597 10 Jun, 2016 Normal first in third trimester Z34.03 and 35 weeks gestation of Z3A.35 [facility] [address]005[address]100[place] [address] June, Normal first in third trimester Z34.03 and 33 weeks gestation of Z3A.33 [facility] [address] [place] [address] [phone] May, 31 weeks gestation of Z3A.31 ; Normal first in third trimester Z34.03 and Encounter for immunization Z23 [address] [place] [address] [id number] May, Normal first in third trimester Z34.03 and 29 weeks gestation of Z3A.29 [facility] [address]00565100[place] [id number] Mar, Normal first confirmed, currently in second trimester Z34.02 and 24 weeks gestation of Z3A.24 [facility] PEREIRAMARISSA[address] [place] [address] [phone] Feb, Normal first confirmed, currently in second trimester Z34.02 and 20 weeks gestation of Z3A.20 [facility] PEREIRAMARISSA[address]005[address]100[place], [place] [id number] Feb, Normal first confirmed, currently in second trimester Z34.02 and 16 weeks gestation of Z3A.16 [facility] [address]00565100[place], [place] [id number] Jan, Normal first confirmed, currently in first trimester Z34.01 and 13 weeks gestation of Z3A.13 [facility] [address]100[place], [place] [address] Dec, Normal first confirmed, currently in first trimester Z34.01 ; 7 weeks gestation of Z3A.01 and Encounter for immunization Z23 [address] [id number] [id number] Nov, test positive Z32.01 [facility] [address]ESCOLLEEN [place] [facility] [id number] [id number] May, Kidney stone N20.0 [facility] [id number] [place] [address] [phone] May, Acute cystitis without hematuria N30.00 and Kidney stone N20.0 [facility] [address] [id number] [place] [address] 72815- 2546 Apr, [facility] [id number] [place] [address] [phone] Apr, Routine gynecological examination Z01.419 ; Encounter for Papanicolaou smear for cervical cancer screening Z12.4 ; Contraceptive management Z30.9 and Screening for STD sexually transmitted disease Z11.3 [place] [address] [place] [id number] [place] [address] 99257 2546 14 May, 2014 [facility] [address] [id number] [place] [address] 71766 2546 May, [facility] [id number] [place] [address] [id number] Apr, [facility] [address] [id number] [place] [address] 20773 2546 Apr, [facility] [address] [place] [id number] [place] [address] 33666- 2546 May, [facility] [id number] [place] [address] [id number] Mar, [facility] [id number] [place] [address] [id number] Oct, [facility] [id number] [place] [address] [phone] Aug, [facility] [id number] [place] [address] [id number] Jul, [facility] [id number] [place] [address] [id number] Jul, [facility] [id number] [place] [address] [phone] Jul, [facility] [id number] [place] [address] [phone] Feb, [facility] [address] [facility] [id number] [place] [phone] Feb, [facility] [address] [facility] [id number] [place] [address]- 0959 Jan, IMMUNIZATIONS No Known Immunizations SOCIAL HISTORY Never Assessed REASON FOR VISIT OB f/u-awoods PLAN OF CARE Activity Details Follow Up 4 Weeks Reason: VITAL SIGNS Height 59.5 in 2017-08-31 Weight 219.5 lbs 2017-08-31 Temperature 98 degrees Fahrenheit 2017-08-31 Heart Rate 105 bpm 2017-08-31 Respiratory Rate 18 2017-08-31 BMI 43.592 kg/m2 2017-08-31 Blood pressure systolic 118 mmHg 2017-08-31 Blood pressure diastolic 62 mmHg 2017-08-31 MEDICATIONS Medication Instructions Dosage Frequency Start Date End Date Duration Status 28-0.8 MG Active RESULTS Name Result Date Reference Range UA OB DIP (IN HOUSE) 2017-08-31 Glucose neg Protein neg PROCEDURES Procedure Date Ordered Result Body Site URINE-NO MICRO August 31, 2017 INSTRUCTIONS MEDICATIONS ADMINISTERED No Known Medications MEDICAL (GENERAL) HISTORY Type Description Date Medical History psoriasis Medical History kidney stones 2015 Medical History childbirth Surgical History benign cyst removed from left eyelid 2008 Surgical History 2017 Hospitalization History child July 2016
--- OUTSIDE RECORDS SUMMARY | 2018-02-11 18:44 | XMS REPORT ---
Author Author JULESNESSA [facility] Address [address] [place] [address] Care Team Providers Care Warm In Worker Name Role Phone GRISELDA VICENTEY Unavailable PROBLEMS Type Condition ICD9-CM Code [id number]-QK Code Onset Dates Condition Status SNOMED Code Problem Dyspepsia R10.13 Active 769970726 Problem Obesity affecting in first trimester O99.211 Active 300016593207 Problem Previous section complicating O34.219 Active 102492243 Problem care, subsequent in first trimester Z34.81 Active 130618800 ALLERGIES Substance Reaction Event Type Date Status Codeine itching Drug Allergy June, Active ENCOUNTERS Encounter Location Date Diagnosis [address] [place] [address] 28830- 7657 Sep, [place] [id number] [place] [address] 85556- 8461 Aug, Second trimester Z33.1 ; 15 weeks gestation of Z3A.15 and BMI 40.0-44.9, adult Z68.[address] [place] [address] 81440- 6488 11 Jul, 2017 care, subsequent in first trimester Z34.81 ; Other specified disorders of amniotic fluid and membranes, first trimester, not applicable or unspecified O41.8X10 ; Other antepartum hemorrhage , first trimester O46.8X1 ; 10 weeks gestation of Z3A.10 and BMI 40.0- 44.9, adult Z68.41 [address] [place] [address] 42896- 3560 Jul, Threatened miscarriage O20.0 [place] [id number] [place] [address] 49030- 2935 June, Normal in multigravida Z34.80 ; First trimester Z34.90 ; 7 weeks gestation of Z3A.01 ; Previous section complicating O34.219 and BMI 40.0-44.9, adult Z68.41 [place] [address] [place] [address] 55907- 8229 June, [place] [address] [place] [id number] [place] [address] 41491- 6982 May, Encounter for test Z32.00 [place] [address] [id number] [place] [address] 23765- 8672 Oct, Diarrhea, unspecified type R19.7 [place] [id number] [place] [address] 94835- 6043 Oct, Dyspepsia R10.13 and Diarrhea, unspecified type R19.7 [place] [address] [place] [id number] [place] [address] 15886- 3340 Aug, Follow-up, , routine Z39.2 [place] [id number] [place] [address] 58693- 8515 Jul, 38 weeks gestation of Z3A.38 and Large for gestational age fetus affecting management of mother, third trimester, not applicable or unspecified fetus O36.63X0 [address] [place] [address] 31134- 7561 June, Normal first in third trimester Z34.03 and 37 weeks gestation of Z3A.37 [place] [address] [place] [address] 16484- 9941 June, 36 weeks gestation of Z3A.36 and screening for streptococcus B Z36 [place] [address] [place] [address] 67295- 6371 June, Normal first in third trimester Z34.03 and 35 weeks gestation of Z3A.35 [facility] [address] [place] [id number] [place] [address] [id number] June, Normal first in third trimester Z34.03 and 33 weeks gestation of Z3A.33 [facility] [address] [place] [address] [id number] May, 31 weeks gestation of Z3A.31 ; Normal first in third trimester Z34.03 and Encounter for immunization Z23 [facility] [place] [id number] [id number] May, Normal first in third trimester Z34.03 and 29 weeks gestation of Z3A.29 [facility] [place] [address] [place] [address] [phone] Mar, Normal first confirmed, currently in second trimester Z34.02 and 24 weeks gestation of Z3A.24 [facility] [address] [place] [address] [id number] Feb, Normal first confirmed, currently in second trimester Z34.02 and 20 weeks gestation of Z3A.20 [facility] [address] [place] [address] [id number] Feb, Normal first confirmed, currently in second trimester Z34.02 and 16 weeks gestation of Z3A.16 [facility] [address] [place] [address] [phone] Jan, Normal first confirmed, currently in first trimester Z34.01 and 13 weeks gestation of Z3A.13 [facility] [address] [id number][place] [id number] Dec, Normal first confirmed, currently in first trimester Z34.01 ; 7 weeks gestation of Z3A.01 and Encounter for immunization Z23 [facility] [address] [id number][place] [id number] Nov, test positive Z32.01 [facility] [address] [facility] [id number] [phone] May, Kidney stone N20.0 [facility] [place] [address] [facility] [id number] [id number] May, Acute cystitis without hematuria N30.00 and Kidney stone N20.0 [facility] [address], [place] [address]- 7[address] 09 Apr, 2015 [facility] [id number] [place] [address] [id number] Apr, Routine gynecological examination Z01.419 ; Encounter for Papanicolaou smear for cervical cancer screening Z12.4 ; Contraceptive management Z30.9 and Screening for STD sexually transmitted disease Z11.3 [facility] [id number] [place] [address] 34665- 2676 14 May, 2014 [facility] [id number] [place] [address] 56849 2547 May, [facility] [address] [address] [id number] [place] [address] [id number] Apr, [facility] [id number] [place] [address] 00263 2546 Apr, [facility] [id number] [place] [address] 10735- 2546 May, [facility] [id number] [place] [address] [id number] Mar, [facility] [address] [address] [id number] [place] [address] [id number] Oct, [facility] [address] [address] [id number] [place] [address] [phone] Aug, [facility] [address] [address] [id number] [place] [address] [id number] Jul, [facility] [address] [address] [id number] [place] [address] [phone] Jul, [facility] [id number] [place] [address] [id number] Jul, [facility] [address] [place] [id number] [place] [address] [id number] Feb, [facility] [id number] [place] [address] [phone] Feb, [facility] [address] [id number] [place] [address] 24221- 2546 Jan, IMMUNIZATIONS No Known Immunizations SOCIAL HISTORY Never Assessed REASON FOR VISIT ob/hx PLAN OF CARE VITAL SIGNS MEDICATIONS Medication Instructions Dosage Frequency Start Date End Date Duration Status 28-0.8 MG Active RESULTS No Results PROCEDURES No Known procedures INSTRUCTIONS MEDICATIONS ADMINISTERED No Known Medications MEDICAL (GENERAL) HISTORY Type Description Date Medical History psoriasis Medical History kidney stones 2015 Medical History childbirth Surgical History benign cyst removed from left eyelid 2008 Surgical History 2017 Hospitalization History child July 2016
--- OUTSIDE RECORDS SUMMARY | 2018-02-11 18:44 | XMS REPORT ---
Author Author JULES NESSA [facility] Address [address] [place] [address] Care Team Providers Care Dermatologist And Dermatopathologist Name Role Phone JULESDAQUAN OLIVIERHANY Unavailable PROBLEMS Type Condition ICD9-CM Code PTP80-BJ Code Onset Dates Condition Status SNOMED Code Problem care, subsequent in second trimester Z34.82 Active 117647991 Problem Dyspepsia R10.13 Active 850162619 Problem Obesity affecting in first trimester O99.211 Active 269256487691 Problem Previous section complicating O34.219 Active 263949060 ALLERGIES No Information ENCOUNTERS Encounter Location Date Diagnosis [address] [place] [address] 40315- 2968 Oct, [place] [id number] [place] [address] 40719- 9704 Sep, care, subsequent in second trimester Z34.82 ; 19 weeks gestation of Z3A.19 and BMI 40.0-44.9, adult Z68.41 [address] [place] [address] 89266- 5527 12 Aug, 2017 Second trimester Z33.1 ; 15 weeks gestation of Z3A.15 and BMI 40.0-44.9, adult Z68.41 [address] [place] [address] 23045- 7744 11 Jul, 2017 care, subsequent in first trimester Z34.81 ; Other specified disorders of amniotic fluid and membranes, first trimester, not applicable or unspecified O41.8X10 ; Other antepartum hemorrhage , first trimester O46.8X1 ; 10 weeks gestation of Z3A.10 and BMI 40.0- 44.9, adult Z68.41 [place] [id number] [place] [address] 51637- 5099 Jul, Threatened miscarriage O20.0 [place] [address] 60518- 9181 June, Normal in multigravida Z34.80 ; First trimester Z34.90 ; 7 weeks gestation of Z3A.01 ; Previous section complicating O34.219 and BMI 40.0-44.9, adult Z68.41 [place] [address] [place] [id number] [place] [address] 44205- 4148 June, [place] [address] [place] [id number] [place] [address] 24900- 9964 May, Encounter for test Z32.00 [place] [address] 40309- 9158 Oct, Diarrhea, unspecified type R19.7 [place] [address] 35014- 1290 Oct, Dyspepsia R10.13 and Diarrhea, unspecified type R19.7 [place] [id number] [place] [address] 59407- 4751 Aug, Follow-up, , routine Z39.2 [place] [address] [place] [id number] [place] [address] 58040- 9258 Jul, 38 weeks gestation of Z3A.38 and Large for gestational age fetus affecting management of mother, third trimester, not applicable or unspecified fetus O36.63X0 [place] [address] [place] [id number] [place] [address] 58055- 4132 June, Normal first in third trimester Z34.03 and 37 weeks gestation of Z3A.37 [place] [address] [place] [id number] [place] [address] 33094- 6408 June, 36 weeks gestation of Z3A.36 and screening for streptococcus B Z36 [address] [place] [address]- 9651 10 Jun, 2016 Normal first in third trimester Z34.03 and 35 weeks gestation of Z3A.35 [facility] [address] [id number] June, Normal first in third trimester Z34.03 and 33 weeks gestation of Z3A.33 [facility] [address] [place] [address] [id number] May, 31 weeks gestation of Z3A.31 ; Normal first in third trimester Z34.03 and Encounter for immunization Z23 [address] [place] [address] [id number] May, Normal first in third trimester Z34.03 and 29 weeks gestation of Z3A.29 [facility] [address] [id number] Mar, Normal first confirmed, currently in second trimester Z34.02 and 24 weeks gestation of Z3A.24 [facility] PEREIRAMARISSA[address] [place] [address] [id number] Feb, Normal first confirmed, currently in second trimester Z34.02 and 20 weeks gestation of Z3A.20 [facility] PEREIRAMRAISSA[address] [id number] Feb, Normal first confirmed, currently in second trimester Z34.02 and 16 weeks gestation of Z3A.16 [facility] [place]100[place] [id number] Jan, Normal first confirmed, currently in first trimester Z34.01 and 13 weeks gestation of Z3A.13 [facility] [address] [phone] Dec, Normal first confirmed, currently in first trimester Z34.01 ; 7 weeks gestation of Z3A.01 and Encounter for immunization Z23 [address] [id number] [place] [id number] Nov, test positive Z32.01 [facility] [place] [address] [facility] [id number][place] [id number] May, Kidney stone N20.0 [facility] [id number] [place] [address] [id number] May, Acute cystitis without hematuria N30.00 and Kidney stone N20.0 [facility] [address] [id number] [place] [address] 57432- 2546 Apr, [facility] [address] [place] [id number] [place] [address] [phone] Apr, Routine gynecological examination Z01.419 ; Encounter for Papanicolaou smear for cervical cancer screening Z12.4 ; Contraceptive management Z30.9 and Screening for STD sexually transmitted disease Z11.3 [place] [address] [place] [id number] [place] [address] 11475 2546 14 May, 2014 [facility] [address] [id number] [place] [address] 59045 2546 May, [facility] [address] [place] [id number] [place] [address] [id number] Apr, [facility] [address] [address] [id number] [place] [address] 16361 2546 Apr, [facility] [address] [id number] [place] [address] 78956- 2546 May, [facility] [id number] [place] [address] [id number] Mar, [facility] [address] [place] [id number] [place] [address] [id number] Oct, [facility] [address] [place] [id number] [place] [address] [id number] Aug, [facility] [address] [place] [id number] [place] [address] [id number] Jul, [facility] [address] [place] [id number] [place] [address] [id number] Jul, [facility] [address] [place] [id number] [place] [address] [id number] Jul, [facility] [address] [place] [id number] [place] [address] [id number] Feb, [facility] [address] [facility] [id number] [place] [phone] Feb, [facility] [address] [facility] [id number] [place] [address]- 7465 Jan, IMMUNIZATIONS No Known Immunizations SOCIAL HISTORY Never Assessed REASON FOR VISIT Patient Concerns PLAN OF CARE VITAL SIGNS MEDICATIONS Unknown Medications RESULTS Name Result Date Reference Range Ultrasound : OB, Early <14 WEEKS 2017-07-25 PROCEDURES No Known procedures INSTRUCTIONS MEDICATIONS ADMINISTERED No Known Medications MEDICAL (GENERAL) HISTORY Type Description Date Medical History psoriasis Medical History kidney stones 2015 Medical History childbirth Surgical History benign cyst removed from left eyelid 2008 Surgical History 2017 Hospitalization History child July 2016
--- OUTSIDE RECORDS SUMMARY | 2018-02-11 18:45 | XMS REPORT ---
Author Author MAURIZIO PENA [facility] Address [address] [place] [address] Care Team Providers Care Director Life Name Role Phone MAURIZIO PENA Unavailable PROBLEMS Type Condition ICD9-CM Code VVY60-QA Code Onset Dates Condition Status SNOMED Code Problem Dyspepsia R10.13 Active 412416820 Problem Diarrhea, unspecified type R19.7 Active 25954347 ALLERGIES Substance Reaction Event Type Date Status Codeine itching Drug Allergy Oct, Active ENCOUNTERS Encounter Location Date Diagnosis [place] [id number] [place] [address] 79748- 5950 Oct, Diarrhea, unspecified type R19.7 [place] [id number] [place] [address] 02330- 2424 Oct, Dyspepsia R10.13 and Diarrhea, unspecified type R19.7 [place] [address] [place] [address] 41649- 3032 Aug, Follow-up, , routine Z39.2 [place] [address] [place] [address] 17424- 0440 Jul, 38 weeks gestation of Z3A.38 and Large for gestational age fetus affecting management of mother, third trimester, not applicable or unspecified fetus O36.63X0 [place] [address] [place] [address] 79187- 5857 June, Normal first in third trimester Z34.03 and 37 weeks gestation of Z3A.37 [place] [address] [address] [place] [address] 43199- 5095 June, 36 weeks gestation of Z3A.36 and screening for streptococcus B Z36 [facility] [address] [facility] [address] [id number] [address]- [address] June, Normal first in third trimester Z34.03 and 35 weeks gestation of Z3A.35 [facility] [address] [phone] June, Normal first in third trimester Z34.03 and 33 weeks gestation of Z3A.33 [facility] [address] [place] [address] [id number] May, 31 weeks gestation of Z3A.31 ; Normal first in third trimester Z34.03 and Encounter for immunization Z23 [address] [place] [address] [id number] May, Normal first in third trimester Z34.03 and 29 weeks gestation of Z3A.29 [address] [place] [address] [id number] Mar, Normal first confirmed, currently in second trimester Z34.02 and 24 weeks gestation of Z3A.24 [address] [id number] Feb, Normal first confirmed, currently in second trimester Z34.02 and 20 weeks gestation of Z3A.20 [address] [id number] Feb, Normal first confirmed, currently in second trimester Z34.02 and 16 weeks gestation of Z3A.[address] [id number] [address] Jan, Normal first confirmed, currently in first trimester Z34.01 and 13 weeks gestation of Z3A.[address] [id number] [id number] Dec, Normal first confirmed, currently in first trimester Z34.01 ; 7 weeks gestation of Z3A.01 and Encounter for immunization Z23 [address] [id number], [place] [id number] Nov, test positive Z32.01 [facility] [address] [id number] [phone] May, Kidney stone N20.0 [facility] [id number], [place] [phone] May, Acute cystitis without hematuria N30.00 and Kidney stone N20.0 [facility] [address]005[address]100[place], [place] [address]- 17[address] Apr, [facility] [id number][place] [phone] Apr, Routine gynecological examination Z01.419 ; Encounter for Papanicolaou smear for cervical cancer screening Z12.4 ; Contraceptive management Z30.9 and Screening for STD sexually transmitted disease Z11.3 [facility] [address]00565100[place], [place] [address]- 4396 14 May, 2014 [facility] [address]00565100[place], [place] [address]- 07[address] May, [facility] [id number], [place] [id number] Apr, [facility] [address] [place] [address] 212524- 9912 Apr, [facility] [address]005[address]100[place], [place] [address]- 3257 May, [facility] [address] [place] [id number][place] [id number] Mar, [facility] [id number], [place] [phone] Oct, [facility] [address] [facility] [id number], [place] [id number] Aug, [facility] [id number], [place] [phone] Jul, [facility] [id number], [place] [id number] Jul, [facility] [address] [place] [id number], [place] [id number] Jul, [facility] [address] [id number] [place] [address] [phone] Feb, [facility] [address] [id number] [place] [phone] Feb, [facility] [address] [facility] [address] [id number] [place] [address]- 2486 Jan, IMMUNIZATIONS No Known Immunizations SOCIAL HISTORY Never Assessed REASON FOR VISIT Allergies- states that she is constantly nauseated and cramping, rash, states she did 30 days of no gluten and has now reintroduced, is as well , Delivered July 27-AHarrymanRN, States unable to recall period but should start in 1.5 weeks PLAN OF CARE Activity Details Follow Up pending test with a new pcp Reason: VITAL SIGNS Height 59.5 in 2016-10-26 Weight 199.0 lbs 2016-10-26 Temperature 98.9 degrees Fahrenheit 2016-10-26 Heart Rate 94 bpm 2016-10-26 Respiratory Rate 18 2016-10-26 BMI 39.52 kg/m2 2016-10-26 Blood pressure systolic 114 mmHg 2016-10-26 Blood pressure diastolic 74 mmHg 2016-10-26 MEDICATIONS Medication Instructions Dosage Frequency Start Date End Date Duration Status 28-0.8 MG Active RESULTS Name Result Date Reference Range H PYLORI (IN HOUSE) 2016-10-26 H. PYLORI Negative Control + Lot # [id number] Exp date 06/2017 TEST, URINE (IN HOUSE) 2016-10-26 RESULTS Negative Lot # [id number] Control + Exp date 02/2018 CELIAC PANEL (OUTSIDE LAB) 2016-10-26 PROCEDURES Procedure Date Ordered Result Body Site IMMUNOASSAY,INFECTIOUS AGENT Oct 26, 2016 URINE TEST Oct 26, 2016 INSTRUCTIONS MEDICATIONS ADMINISTERED No Known Medications MEDICAL (GENERAL) HISTORY Type Description Date Medical History psoriasis Medical History kidney stones 2015 Surgical History benign cyst removed from left eyelid 2008 Hospitalization History child July 2016
--- OUTSIDE RECORDS SUMMARY | 2018-02-11 18:45 | XMS REPORT ---
Author Author NESSA VICENTE [facility] Address [address] [place] [address] Care Team Providers Care Rn Clinical Documentation Name Role Phone NESSA VICENTE Unavailable PROBLEMS Type Condition ICD9-CM Code WRJ79-DB Code Onset Dates Condition Status SNOMED Code Problem Dyspepsia R10.13 Active 306877550 Problem Diarrhea, unspecified type R19.7 Active 39917803 ALLERGIES Substance Reaction Event Type Date Status Codeine itching Drug Allergy June, Active SOCIAL HISTORY Never Assessed PLAN OF CARE Activity Details Follow Up 2 Weeks Reason: VITAL SIGNS Height 59.5 in 2016-06-21 Weight 203.2 lbs 2016-06-21 Temperature 98.9 degrees Fahrenheit 2016-06-21 Heart Rate 88 bpm 2016-06-21 Respiratory Rate 18 2016-06-21 BMI 40.355 kg/m2 2016-06-21 Blood pressure systolic 130 mmHg 2016-06-21 Blood pressure diastolic 68 mmHg 2016-06-21 MEDICATIONS Medication Instructions Dosage Frequency Start Date End Date Duration Status 28-0.8 MG Active RESULTS No Results PROCEDURES Procedure Date Ordered Result Body Site URINE-NO MICRO June 21, 2016 IMMUNIZATIONS No Known Immunizations MEDICAL (GENERAL) HISTORY Type Description Date Medical History psoriasis Medical History kidney stones 2015 Surgical History benign cyst removed from left eyelid 2008 Hospitalization History child July 2016
--- OUTSIDE RECORDS SUMMARY | 2018-02-11 18:45 | XMS REPORT ---
Author Author JULESNESSA [facility] Address [address] [place] [address] Care Team Providers Care Special Crimes Investigator Name Role Phone NESSA VICENTE Unavailable PROBLEMS Type Condition ICD9-CM Code PPY37-HD Code Onset Dates Condition Status SNOMED Code Problem Dyspepsia R10.13 Active 095444095 Problem Diarrhea, unspecified type R19.7 Active 46039854 ALLERGIES Substance Reaction Event Type Date Status Codeine itching Drug Allergy Aug, Active ENCOUNTERS Encounter Location Date Diagnosis [place] [id number] [place] [address] 88388- [address]85 Oct, Diarrhea, unspecified type R19.7 [place] [address] [address] Oct, Dyspepsia R10.13 and Diarrhea, unspecified type R19.7 [place] [id number] [place] [address] 31184- 9226 Aug, Follow-up, , routine Z39.2 [place] [id number] [place] [address] 58488- 1638 Jul, 38 weeks gestation of Z3A.38 and Large for gestational age fetus affecting management of mother, third trimester, not applicable or unspecified fetus O36.63X0 [place] [id number] [place] [address] 50975- 0764 June, Normal first in third trimester Z34.03 and 37 weeks gestation of Z3A.37 [place] [address] [place] [id number] [place] [address] 85326- 9211 June, 36 weeks gestation of Z3A.36 and screening for streptococcus B Z36 [place] [address] [facility] [id number] [place] [address] June, Normal first in third trimester Z34.03 and 35 weeks gestation of Z3A.35 [facility] PEREIRAMARISSA[address] [id number] June, Normal first in third trimester Z34.03 and 33 weeks gestation of Z3A.33 [facility] PEREIR[address]AR[address]SA[address]100[place] [id number] May, 31 weeks gestation of Z3A.31 ; Normal first in third trimester Z34.03 and Encounter for immunization Z23 [address]100[place] [id number] May, Normal first in third trimester Z34.03 and 29 weeks gestation of Z3A.29 [facility] MARISSA[address]100[place] [id number] Mar, Normal first confirmed, currently in second trimester Z34.02 and 24 weeks gestation of Z3A.24 [facility] [address] [id number][place] [id number] Feb, Normal first confirmed, currently in second trimester Z34.02 and 20 weeks gestation of Z3A.20 [facility] [address] [id number][place] [id number] Feb, Normal first confirmed, currently in second trimester Z34.02 and 16 weeks gestation of Z3A.16 [facility] [address] [id number] [phone] Jan, Normal first confirmed, currently in first trimester Z34.01 and 13 weeks gestation of Z3A.[address] [id number], [place] [id number] Dec, Normal first confirmed, currently in first trimester Z34.01 ; 7 weeks gestation of Z3A.01 and Encounter for immunization Z23 [address] [id number][place] [phone] Nov, test positive Z32.01 [facility] [address] [id number][place] [id number] May, Kidney stone N20.0 [facility] [id number], [place] [phone] May, Acute cystitis without hematuria N30.00 and Kidney stone N20.0 [facility] [address]100[place], [place] [address] Apr, [facility] [address] [place] [id number] [place] [phone] Apr, Routine gynecological examination Z01.419 ; Encounter for Papanicolaou smear for cervical cancer screening Z12.4 ; Contraceptive management Z30.9 and Screening for STD (sexually transmitted disease) Z11.3 [facility] [address] [place] [address] 87120- 9695 14 May, 2014 [facility] [address]100[place], [place] [address] May, [facility] [id number][place] [phone] Apr, [facility] [address] [place] [address] 405150- 4424 Apr, [facility] [address] [place] [address] 90418- 6269 May, [facility] [id number], [place] [id number] Mar, [facility] [id number] [place] [address] [phone] Oct, [facility] [id number], [place] [phone] Aug, [facility] [id number] [place] [address] [id number] Jul, [facility] [id number] [place] [address] [id number] Jul, [facility] [id number], [place] [phone] Jul, [facility] [address] [place] [id number] [place] [address] [phone] Feb, [facility] [address] [facility] [id number] [place] [phone] Feb, [facility] [address] [facility] [id number] [place] [address] Jan, IMMUNIZATIONS No Known Immunizations SOCIAL HISTORY Never Assessed REASON FOR VISIT OB-, PT has no concerns at this time- Elaine RIVERA PLAN OF CARE Activity Details Follow Up 1 Year Reason:well woman VITAL SIGNS Height 59.5 in 2016-09-07 Weight 198.6 lbs 2016-09-07 Temperature 98.1 degrees Fahrenheit 2016-09-07 Heart Rate 68 bpm 2016-09-07 Respiratory Rate 20 2016-09-07 BMI 39.44 kg/m2 2016-09-07 Blood pressure systolic 108 mmHg 2016-09-07 Blood pressure diastolic 68 mmHg 2016-09-07 MEDICATIONS Medication Instructions Dosage Frequency Start Date End Date Duration Status 28-0.8 MG Active RESULTS Name Result Date Reference Range TEST, URINE (IN HOUSE) 2016-09-07 RESULTS Negative Lot # [id number] Control + Exp date 07/08/29 PROCEDURES Procedure Date Ordered Result Body Site URINE TEST September 07, 2016 INSTRUCTIONS MEDICATIONS ADMINISTERED No Known Medications MEDICAL (GENERAL) HISTORY Type Description Date Medical History psoriasis Medical History kidney stones 2015 Surgical History benign cyst removed from left eyelid 2008 Hospitalization History child July 2016
--- OUTSIDE RECORDS SUMMARY | 2018-02-11 18:45 | XMS REPORT ---
Author Author ALBA AYERS [facility] Address [address] [place] [address] Care Team Providers Care Scuba Diving Instructor Name Role Phone AYERSALBA Unavailable PROBLEMS Type Condition ICD9-CM Code MFS77-SE Code Onset Dates Condition Status SNOMED Code Problem Dyspepsia R10.13 Active 662068230 Problem Obesity affecting in first trimester O99.211 Active 757249596995 Problem Previous section complicating O34.219 Active 994026791 Problem care, subsequent in first trimester Z34.81 Active 856368916 ALLERGIES No Information ENCOUNTERS Encounter Location Date Diagnosis [address] [address] Sep, [address] 80[address]- [address]279 Aug, Second trimester Z33.1 ; 15 weeks gestation of Z3A.15 and BMI 40.0-44.9, adult Z68.41 [place] [id number] [place] [address] 41175- 4877 11 Jul, 2017 care, subsequent in first trimester Z34.81 ; Other specified disorders of amniotic fluid and membranes, first trimester, not applicable or unspecified O41.8X10 ; Other antepartum hemorrhage , first trimester O46.8X1 ; 10 weeks gestation of Z3A.10 and BMI 40.0- 44.9, adult Z68.[address] [address]42- [address]99 Jul, Threatened miscarriage O20.0 [place] [id number] [place] [address] 82563- 3694 June, Normal in multigravida Z34.80 ; First trimester Z34.90 ; 7 weeks gestation of Z3A.01 ; Previous section complicating O34.219 and BMI 40.0-44.9, adult Z68.41 [place] [address] [place] [id number] [place] [address] 83347- 4302 June, [place] [address] [place] [id number] [place] [address] 17586- 7338 May, Encounter for test Z32.00 [place] [address] [place] [id number] [place] [address] 99074- 8485 08 Oct, 2016 Diarrhea, unspecified type R19.[address] [address]287- 1081 Oct, Dyspepsia R10.13 and Diarrhea, unspecified type R19.7 [place] [id number] [place] [address] 51886- 0888 Aug, Follow-up, , routine Z39.2 [place] [id number] [place] [address] 32262- 0179 Jul, 38 weeks gestation of Z3A.38 and Large for gestational age fetus affecting management of mother, third trimester, not applicable or unspecified fetus O36.63X0 [place] [id number] [place] [address] 39192- 0838 June, Normal first in third trimester Z34.03 and 37 weeks gestation of Z3A.37 [place] [address] [place] [id number] [place] [address] 20010- 5104 June, 36 weeks gestation of Z3A.36 and screening for streptococcus B Z36 [address] 44669- 5273 June, Normal first in third trimester Z34.03 and 35 weeks gestation of Z3A.35 [facility] [id number] [place] [address] [phone] June, Normal first in third trimester Z34.03 and 33 weeks gestation of Z3A.33 [facility] [id number] [place] [address] [phone] May, 31 weeks gestation of Z3A.31 ; Normal first in third trimester Z34.03 and Encounter for immunization Z23 [facility] [id number] [place] [address] [phone] May, Normal first in third trimester Z34.03 and 29 weeks gestation of Z3A.29 [facility] [place] [address] [place] [id number] [place] [address] [id number] Mar, Normal first confirmed, currently in second trimester Z34.02 and 24 weeks gestation of Z3A.24 [facility] [address] [place] [id number] [place] [address] [phone] Feb, Normal first confirmed, currently in second trimester Z34.02 and 20 weeks gestation of Z3A.20 [facility] [address] [place] [id number] [place] [address] [phone] Feb, Normal first confirmed, currently in second trimester Z34.02 and 16 weeks gestation of Z3A.16 [facility] [id number] [place] [address] [phone] Jan, Normal first confirmed, currently in first trimester Z34.01 and 13 weeks gestation of Z3A.13 [facility] [id number] [place] [address] [id number] Dec, Normal first confirmed, currently in first trimester Z34.01 ; 7 weeks gestation of Z3A.01 and Encounter for immunization Z23 [facility] [place] [address] [place] [address] [phone] Nov, test positive Z32.[address] [facility] [address] [id number] [phone] May, Kidney stone N20.0 [facility] [id number] [place] [address] [phone] May, Acute cystitis without hematuria N30.00 and Kidney stone N20.0 [facility] [address] [place] [address] 52065- 2546 09 Apr, 2015 [facility] [id number] [phone] Apr, Routine gynecological examination Z01.419 ; Encounter for Papanicolaou smear for cervical cancer screening Z12.4 ; Contraceptive management Z30.9 and Screening for STD sexually transmitted disease Z11.3 [facility] [address]00565100[place], [place] [address] 2546 14 May, 2014 [facility] [address] [place] [address] 51392- 2546 13 May, 2014 [facility] [id number] [place] [address] [phone] Apr, [facility] [address] [place] [id number] [place] [address] 69368- 2546 Apr, [facility] [address] [place] [address] 26992- 2546 May, [facility] [id number] [place] [address] [id number] Mar, [facility] [id number] [place] [address] [phone] Oct, [facility] [address] [place] [id number] [place] [address] [phone] Aug, [facility] [address] [place] [id number] [place] [address] [id number] Jul, [facility] [address] [place] [id number] [place] [address] [phone] Jul, [facility] [id number] [place] [address] [id number] Jul, [facility] [id number] [place] [address] [phone] Feb, [facility] [address] [place] [id number] [place] [address] [phone] Feb, [facility] [address], [place] [address]- 2546 Jan, IMMUNIZATIONS No Known Immunizations SOCIAL HISTORY Never Assessed REASON FOR VISIT test ([facility]-in[facility] PLAN OF CARE VITAL SIGNS MEDICATIONS Unknown Medications RESULTS Name Result Date Reference Range TEST, URINE (IN HOUSE) 2017-06-19 RESULTS POSITIVE Lot # [id number] Control + Exp date 08/2018 PROCEDURES Procedure Date Ordered Result Body Site URINE TEST June 19, 2017 INSTRUCTIONS MEDICATIONS ADMINISTERED No Known Medications MEDICAL (GENERAL) HISTORY Type Description Date Medical History psoriasis Medical History kidney stones 2015 Medical History childbirth Surgical History benign cyst removed from left eyelid 2008 Surgical History 2017 Hospitalization History child July 2016
--- OUTSIDE RECORDS SUMMARY | 2018-02-11 18:45 | XMS REPORT ---
Author Author ALBA AYERS [facility] Address [address] [place] [address] Care Team Providers Care Car Trimmer Name Role Phone ARMEN ALBA Unavailable PROBLEMS Type Condition ICD9-CM Code AEV25-LC Code Onset Dates Condition Status SNOMED Code Problem Dyspepsia R10.13 Active 649996285 Problem Diarrhea, unspecified type R19.7 Active 09762831 ALLERGIES Substance Reaction Event Type Date Status Codeine itching Drug Allergy Mar, Active SOCIAL HISTORY Never Assessed PLAN OF CARE Activity Details Follow Up 4 Weeks Reason:ob VITAL SIGNS Height 59.5 in 2016-04-18 Weight 188.8 lbs 2016-04-18 Temperature 99.0 degrees Fahrenheit 2016-04-18 Heart Rate 84 bpm 2016-04-18 Respiratory Rate 16 2016-04-18 BMI 37.495 kg/m2 2016-04-18 Blood pressure systolic 122 mmHg 2016-04-18 Blood pressure diastolic 68 mmHg 2016-04-18 MEDICATIONS Medication Instructions Dosage Frequency Start Date End Date Duration Status 28-0.8 MG Active RESULTS Name Result Date Reference Range GLUCOSE TI 1 HOUR 2016-04-18 Gestational Diabetes Screen 104 65-139 CBC 2016-04-18 WBC 9.9 3.4-10.8 RBC 3.52 3.77-5.28 Hemoglobin 11.2 11.1-15.9 Hematocrit 32.7 34.0-46.6 MCV 93 79-97 MCH 31.8 26.6-33.0 MCHC 34.3 31.5-35.7 RDW 13.6 12.3-15.4 Platelets 200 150-379 Neutrophils 76 Lymphs 15 Monocytes 8 Eos 1 Basos 0 Neutrophils (Absolute) 7.4 1.4-7.0 Lymphs (Absolute) 1.5 0.7-3.1 Monocytes(Absolute) 0.8 0.1-0.9 Eos (Absolute) 0.1 0.0-0.4 Baso (Absolute) 0.0 0.0-0.2 Immature Granulocytes 0 Immature Grans (Abs) 0.0 0.0-0.1 PROCEDURES Procedure Date Ordered Result Body Site [facility] Apr 18, 2016 VENIPUNCT, ROUTINE* Apr 18, 2016 IMMUNIZATIONS No Known Immunizations MEDICAL (GENERAL) HISTORY Type Description Date Medical History psoriasis Medical History kidney stones 2015 Surgical History benign cyst removed from left eyelid 2008 Hospitalization History child July 2016
--- OUTSIDE RECORDS SUMMARY | 2018-02-11 18:45 | XMS REPORT ---
Author Author JULESNESSA [facility] Address [address] [place] [address] Care Team Providers Care Certified Shorthand Reporter Name Role Phone NESSA VICENTE Unavailable PROBLEMS Type Condition ICD9-CM Code HJU08-BG Code Onset Dates Condition Status SNOMED Code Problem Dyspepsia R10.13 Active 973981466 Problem Diarrhea, unspecified type R19.7 Active 63226909 ALLERGIES No Information ENCOUNTERS Encounter Location Date Diagnosis [address] [address] Oct, Diarrhea, unspecified type R19.[address] [address]- [address] Oct, Dyspepsia R10.13 and Diarrhea, unspecified type R19.[address] [address]- [address] Aug, Follow-up, , routine Z39.2 [place] [id number] [place] [address] 51610- 5905 Jul, 38 weeks gestation of Z3A.38 and Large for gestational age fetus affecting management of mother, third trimester, not applicable or unspecified fetus O36.63X0 [place] [address] [place] [address] 47172- 5909 June, Normal first in third trimester Z34.03 and 37 weeks gestation of Z3A.37 [place] [address] [place] [address] 06001- 6411 June, 36 weeks gestation of Z3A.36 and screening for streptococcus B Z36 [place] [address] [place] [address] 48340- 2966 June, Normal first in third trimester Z34.03 and 35 weeks gestation of Z3A.35 [facility] [address] [place] [address] [phone] June, Normal first in third trimester Z34.03 and 33 weeks gestation of Z3A.33 [facility] [place] [address] [place] [address] [phone] May, 31 weeks gestation of Z3A.31 ; Normal first in third trimester Z34.03 and Encounter for immunization Z23 [address] [place] [address] [id number] May, Normal first in third trimester Z34.03 and 29 weeks gestation of Z3A.29 [facility] [address] [place] [address] [id number] Mar, Normal first confirmed, currently in second trimester Z34.02 and 24 weeks gestation of Z3A.24 [facility] [place] [address] [place] [address] [phone] Feb, Normal first confirmed, currently in second trimester Z34.02 and 20 weeks gestation of Z3A.20 [facility] [address] [place] [address] [phone] Feb, Normal first confirmed, currently in second trimester Z34.02 and 16 weeks gestation of Z3A.16 [facility] [address] [place] [address] [phone] Jan, Normal first confirmed, currently in first trimester Z34.01 and 13 weeks gestation of Z3A.13 [facility] [id number] [place] [address] [id number] Dec, Normal first confirmed, currently in first trimester Z34.01 ; 7 weeks gestation of Z3A.01 and Encounter for immunization Z23 [address], [place] [id number] Nov, test positive Z32.[address] [facility] [address] [id number]'[place] [phone] May, Kidney stone N20.0 [facility] [id number] [place] [address] [id number] May, Acute cystitis without hematuria N30.00 and Kidney stone N20.0 [facility] [id number] [place] [address] 51706 2546 Apr, [facility] [id number] [place] [address] [phone] Apr, Routine gynecological examination Z01.419 ; Encounter for Papanicolaou smear for cervical cancer screening Z12.4 ; Contraceptive management Z30.9 and Screening for STD (sexually transmitted disease) Z11.3 [facility] [address] [address]- [address] 14 May, 2014 [facility] [address] [id number] [place] [address] 95389- 0068 May, [facility] [id number] [place] [address] [id number] Apr, [facility] [address] [place] [id number] [place] [address] 57735 2545 Apr, [facility] [address] [address] 2546 May, [facility] [id number] [place] [address] [id number] Mar, [facility] [id number] [place] [address] [id number] Oct, [facility] [id number] [place] [address] [phone] Aug, [facility] [id number] [place] [address] [id number] Jul, [facility] [id number] [place] [address] [id number] Jul, [facility] [id number] [place] [address] [id number] Jul, [facility] [id number] [place] [address] [phone] Feb, [facility] [address] [facility] [id number] [place] [phone] Feb, [facility] [address] [facility] [id number] [place] [phone] Jan, IMMUNIZATIONS No Known Immunizations SOCIAL HISTORY Never Assessed REASON FOR VISIT OB fu -- didi escalera PLAN OF CARE Activity Details Follow Up 1 Week, 1 Week, 1 Week Reason: VITAL SIGNS Height 59.5 in 2016-07-22 Weight 216.0 lbs 2016-07-22 Temperature 98.0 degrees Fahrenheit 2016-07-22 Heart Rate 86 bpm 2016-07-22 Respiratory Rate 20 2016-07-22 BMI 42.897 kg/m2 2016-07-22 Blood pressure systolic 120 mmHg 2016-07-22 Blood pressure diastolic 78 mmHg 2016-07-22 MEDICATIONS Medication Instructions Dosage Frequency Start Date End Date Duration Status 28-0.8 MG Active RESULTS Name Result Date Reference Range UA OB DIP (IN HOUSE) 2016-07-22 Glucose neg Protein trace Ultrasound : OB, Follow-up 2016-07-25 PROCEDURES Procedure Date Ordered Result Body Site URINE-NO MICRO July 22, 2016 INSTRUCTIONS MEDICATIONS ADMINISTERED No Known Medications MEDICAL (GENERAL) HISTORY Type Description Date Medical History psoriasis Medical History kidney stones 2015 Surgical History benign cyst removed from left eyelid 2008 Hospitalization History child July 2016
--- OUTSIDE RECORDS SUMMARY | 2018-02-11 18:46 | XMS REPORT ---
Author Author NESSA VICENTE Organization [facility] Address [address] [place] [address] Care Team Providers Care Analytical Lead Name Role Phone JULESDAQUAN OLIVIERHANY Unavailable PROBLEMS Type Condition ICD9-CM Code FXO73-IT Code Onset Dates Condition Status SNOMED Code Problem Dyspepsia R10.13 Active 822045790 Problem Diarrhea, unspecified type R19.7 Active 76886448 ALLERGIES No Information SOCIAL HISTORY Never Assessed PLAN OF CARE Activity Details Follow Up 1 Week, 1 Week Reason: VITAL SIGNS Height 59.5 in 2016-07-14 Weight 209 lbs 2016-07-14 Temperature 98 degrees Fahrenheit 2016-07-14 Heart Rate 90 bpm 2016-07-14 Respiratory Rate 18 2016-07-14 BMI 41.506 kg/m2 2016-07-14 Blood pressure systolic 110 mmHg 2016-07-14 Blood pressure diastolic 70 mmHg 2016-07-14 MEDICATIONS Unknown Medications RESULTS Name Result Date Reference Range UA OB DIP (IN HOUSE) 2016-07-14 Glucose neg Protein trace PROCEDURES Procedure Date Ordered Result Body Site URINE-NO MICRO July 14, 2016 IMMUNIZATIONS No Known Immunizations MEDICAL (GENERAL) HISTORY Type Description Date Medical History psoriasis Medical History kidney stones 2015 Surgical History benign cyst removed from left eyelid 2008 Hospitalization History child July 2016
--- OUTSIDE RECORDS SUMMARY | 2018-02-11 18:46 | XMS REPORT ---
Author Author ALBA AYERS [facility] Address [address] [place] [address] Care Team Providers Care Trouble Shooter Name Role Phone ALBA AYERS Unavailable PROBLEMS Unknown Problems ALLERGIES Substance Reaction Event Type Date Status Codeine itching Drug Allergy Feb, Active SOCIAL HISTORY No smoking Hx information available PLAN OF CARE Activity Details Follow Up 4 Weeks Reason:ob VITAL SIGNS Height 59.5 in 2016-02-22 Weight 167.8 lbs 2016-02-22 Temperature 98.8 degrees Fahrenheit 2016-02-22 Heart Rate 80 bpm 2016-02-22 Respiratory Rate 16 2016-02-22 BMI 33.324 kg/m2 2016-02-22 Blood pressure systolic 110 mmHg 2016-02-22 Blood pressure diastolic 68 mmHg 2016-02-22 MEDICATIONS No Known Medications RESULTS Name Result Date Reference Range UA LONG DIP (IN HOUSE) 2016-02-22 Lot # [id number] Exp date 12/2016 Clarity clear Color yellow Odor no GLU neg ANA MARÍA neg KET neg SG 1.020 BLO neg pH 6.0 Protein neg URO 0.2 NIT neg STEFANI neg Lot # Exp date PDF Report 2016-02-22 PDF Report1 LCLS TETRA SCREEN 2016-02-22 Results Report Test Results: *Screen Negative* Gest. Age on Collection Date 16.6 Gestat. Age Based On Ultrasound Maternal Age At ARMAAN 22.9 Race Weight 167 Insulin Dep Diabetes No Multiple Gestation No AFP Value 27.1 AFP MoM 0.84 hCG Value 95062 hCG MoM 0.83 uE3 Value 1.50 uE3 MoM 1.56 ALBERT Value 314.21 ALBERT MoM 1.94 [place] [address] DSR (Second Trimester) 1 IN 1181 DSR (By Age) 1 IN 1106 T18 Risk Not increased T18 (By Age) 1:4307 Interpretation Comments: PDF . PROCEDURES Procedure Date Ordered Related Diagnosis Body Site LAB NOT BILLED BY [facility] Feb 22, 2016 Office Visit, Est Pt., Level 3 Feb 22, 2016 URINALYSIS, AUTO, W/O SCOPE Feb 22, 2016 VENIPUNCT, ROUTINE* Feb 22, 2016 URINE-NO MICRO Feb 22, 2016 IMMUNIZATIONS No Known Immunizations
--- OUTSIDE RECORDS SUMMARY | 2018-02-11 18:46 | XMS REPORT ---
Author Author MAURIZIO PENA [facility] Address [address] [place] [address] Care Team Providers Care Meat Stuffer Name Role Phone JEAN MAURIZIO Unavailable PROBLEMS Type Condition ICD9-CM Code DPE34-MZ Code Onset Dates Condition Status SNOMED Code Problem Dyspepsia R10.13 Active 178138454 Problem Diarrhea, unspecified type R19.7 Active [id number] ALLERGIES No Information ENCOUNTERS Encounter Location Date Diagnosis [place] [id number] [place] [phone] Oct, Diarrhea, unspecified type R19.7 [place] [id number] [place] [address] [phone] Oct, Dyspepsia R10.13 and Diarrhea, unspecified type R19.7 [place] [id number] [place] [address] [phone] Aug, Follow-up, , routine Z39.2 [place] [address] [place] [id number] [place] [address] [phone] Jul, 38 weeks gestation of Z3A.38 and Large for gestational age fetus affecting management of mother, third trimester, not applicable or unspecified fetus O36.63X0 [place] [address] [place] [address] [phone]- [phone] June, Normal first in third trimester Z34.03 and 37 weeks gestation of Z3A.37 [place] [address] [place] [address] 72167- 3959 June, 36 weeks gestation of Z3A.36 and screening for streptococcus B Z36 [place] [id number] [place] [address] 55726- [phone] June, Normal first in third trimester Z34.03 and 35 weeks gestation of Z3A.35 [facility] [address] [place] [address] [phone] June, Normal first in third trimester Z34.03 and 33 weeks gestation of Z3A.33 [facility] [place] [id number] [place] [address] [phone] May, 31 weeks gestation of Z3A.31 ; Normal first in third trimester Z34.03 and Encounter for immunization Z23 [address] [place] [address] [id number] May, Normal first in third trimester Z34.03 and 29 weeks gestation of Z3A.29 [facility] [address] [place] [address] [id number] Mar, Normal first confirmed, currently in second trimester Z34.02 and 24 weeks gestation of Z3A.24 [facility] [place] [id number] [place] [address] [id number] Feb, Normal first confirmed, currently in second trimester Z34.02 and 20 weeks gestation of Z3A.20 [facility] [address] [place] [address] [id number] Feb, Normal first confirmed, currently in second trimester Z34.02 and 16 weeks gestation of Z3A.16 [facility] [address] [phone] Jan, Normal first confirmed, currently in first trimester Z34.01 and 13 weeks gestation of Z3A.13 [facility] [id number] [place] [address] [id number] Dec, Normal first confirmed, currently in first trimester Z34.01 ; 7 weeks gestation of Z3A.01 and Encounter for immunization Z23 [address] [phone] Nov, test positive Z32.01 [facility] [place] [address] [facility] [address] [id number] [phone] May, Kidney stone N20.0 [facility] [id number] [place] [address] [phone] May, Acute cystitis without hematuria N30.00 and Kidney stone N20.0 [facility] [address] [id number] [address] Apr, [facility] [address] [id number] [place] [address] [phone] Apr, Routine gynecological examination Z01.419 ; Encounter for Papanicolaou smear for cervical cancer screening Z12.4 ; Contraceptive management Z30.9 and Screening for STD sexually transmitted disease Z11.3 [facility] [address] [place] [id number] [place] [address] [phone] 14 May, 2014 [facility] [address] [place] [id number] [place] [address] [phone] May, [facility] [id number] [place] [address] [id number] Apr, [facility] [address] [place] [id number] [place] [address] [phone] Apr, [facility] [address] [address] May, [facility] [id number] [place] [address] [phone] Mar, [facility] [id number] [place] [address] [id number] Oct, [facility] [address] [address] [id number] [place] [address] [id number] Aug, [facility] [id number] [place] [address] [id number] Jul, [facility] [address] [id number] [place] [address] [phone] Jul, [facility] [address] [id number] [place] [address] [id number] Jul, [facility] [id number] [place] [address] [phone] Feb, [facility] [address] [facility] [id number] [place] [phone] Feb, [facility] [address] [facility] [id number] [place] [phone] Jan, IMMUNIZATIONS No Known Immunizations SOCIAL HISTORY Never Assessed REASON FOR VISIT Lab PLAN OF CARE VITAL SIGNS MEDICATIONS Unknown Medications RESULTS Name Result Date Reference Range CULTURE, STOOL 2016-10-28 Campylobacter Culture Final report Result 1 STOOL (O & P) 2016-10-28 Ova + Parasite Exam STOOL (C-DIFF) 2016-10-28 C difficile Toxin Gene JOLIE Negative Negative CULTURE, STOOL 2016-10-28 Salmonella/Shigella Screen Final report Campylobacter Culture Final report E coli Shiga Toxin EIA Negative Negative Result 1 Result 1 STOOL (O & P) 2016-10-28 Ova + Parasite Exam Final report Result 1 STOOL (C-DIFF) 2016-10-28 C difficile Toxin Gene JOLIE Negative Negative PROCEDURES Procedure Date Ordered Result Body Site LAB NOT BILLED BY [facility] Oct 28, 2016 INSTRUCTIONS MEDICATIONS ADMINISTERED No Known Medications MEDICAL (GENERAL) HISTORY Type Description Date Medical History psoriasis Medical History kidney stones 2015 Surgical History benign cyst removed from left eyelid 2008 Hospitalization History child July 2016
--- OUTSIDE RECORDS SUMMARY | 2018-02-11 18:46 | XMS REPORT | Continuity of Care Document ---
Author Author [facility] Address Unknown Phone Unavailable Allergies Active Description Code Type Severity Reaction Onset Reported/Identified Relationship to Patient Clinical Status Yes codeine Drug Allergy N/A N/A 05/13/2014 Yes codeine [id number] Drug Allergy Unknown N/A 07/26/2016 Yes codeine [id number] Drug Allergy Mild GI UPSET/ITCHIN 02/08/2018 Medications There is no data. Problems Date Dx Coded Attending Type Code Diagnosis Diagnosed By 09/19/2008 463 ACUTE TONSILLITIS 09/19/2008 ALBA AYERS DO 463 ACUTE TONSILLITIS 10/16/2009 373.11 HORDEOLUM EXTERNUM 10/16/2009 ALBA AYERS DO 373.11 HORDEOLUM EXTERNUM 01/28/2011 V04.89 GARDASIL (HPV ) DX 01/28/2011 V25.02 CONTRACEPTION - ANY METHOD 01/28/2011 V72.9 UNSPECIFIED EXAMINATION 01/28/2011 ALBA AYERS DO V04.89 GARDASIL (HPV) DX 01/28/2011 ALBA AYERS DO V25.02 CONTRACEPTION - ANY METHOD 01/28/2011 ALBA AYERS DO V72.9 UNSPECIFIED EXAMINATION 07/28/2011 V70.5 PREEMPLOYMENT/ PRESCHOOL EXAM 07/28/2011 ALBA AYERS DO V70.5 PREEMPLOYMENT/PRESCHOOL EXAM 07/29/2011 569.3 HEMORRHAGE OF RECTUM AND ANUS 07/29/2011 ALBA AYERS DO 569.3 HEMORRHAGE OF RECTUM AND ANUS 2011 626.4 IRREGULAR MENSTRUAL CYCLE 2011 787.02 NAUSEA ALONE 2011 V25.09 CONTRACEPTIVE COUNSELING - GENERAL 2011 ALBA AYERS DO 626.4 IRREGULAR MENSTRUAL CYCLE 2011 ALBA AYERS DO 787.02 NAUSEA ALONE 2011 ALBA AYERS DO V25.09 CONTRACEPTIVE COUNSELING - GENERAL 10/26/2011 692.9 DERMATITIS CONTACT UNSPECIFIED 10/26/2011 ALBA AYERS DO K 692.9 DERMATITIS CONTACT UNSPECIFIED 03/28/2012 V20.2 WELL CHILD 03/28/2012 ALBA AYERS DO V20.2 WELL CHILD 05/13/2014 ARMEN WYMAN ALBA K V25.01 CONTRACEPTION - ORAL CONTRACEPTION 01/06/2016 ARMEN WYMAN ALBA K Ot Z36 ENCOUNTER FOR SCREENING OF MOT 01/06/2016 ARMEN WYMAN ALBA K Ot Z3A.09 9 WEEKS GESTATION OF 01/06/2016 ARMEN WYMAN ALBA K Ot Z36 ENCOUNTER FOR SCREENING OF MOT 01/06/2016 ARMEN WYMAN, ALBA K Ot Z3A.09 9 WEEKS GESTATION OF 01/21/2016 AYERS ALBA K Ot Z36 ENCOUNTER FOR SCREENING OF MOT 01/21/2016 ARMEN WYMAN ALBA K Ot Z3A.09 9 WEEKS GESTATION OF 03/25/2016 AYERS DO ALBA K Ot Z36 ENCOUNTER FOR SCREENING OF MOT 03/25/2016 ARMEN WYMAN ALBA K Ot Z3A.22 22 WEEKS GESTATION OF 04/12/2016 ARMEN WYMAN ALBA K Ot Z36 ENCOUNTER FOR SCREENING OF MOT 04/12/2016 ARMEN WYMAN ALBA K Ot Z3A.22 22 WEEKS GESTATION OF 07/26/2016 JULES LEES, NESSA Howard Ot O36.63X0 MATERNAL CARE FOR EXCESS GROWTH, T 07/26/2016 NESSA VICENTE MD, Ot Z3A.40 40 WEEKS GESTATION OF 07/27/2016 ARMEN WYMAN ALBA K Ot Z36 ENCOUNTER FOR SCREENING OF MOT 07/27/2016 AYERS DO ALBA K Ot Z3A.09 9 WEEKS GESTATION OF 07/27/2016 AYERS DO ALBA K Ot Z36 ENCOUNTER FOR SCREENING OF MOT 07/27/2016 AYERS DO ALBA K Ot Z3A.22 22 WEEKS GESTATION OF 07/27/2016 NESSA VICENTE MD, Ot O36.63X0 MATERNAL CARE FOR EXCESS GROWTH, T 07/27/2016 NESSA VICENET MD, Ot Z3A.40 40 WEEKS GESTATION OF 07/29/2016 NESSA VICENTE MD, Ot D62 ACUTE POSTHEMORRHAGIC ANEMIA 07/29/2016 NESSA VICENTE MD, Ot E66.01 MORBID (SEVERE) OBESITY DUE TO EXCESS CA 07/29/2016 NESSA VICENTE MD, Ot O32.4XX0 MATERNAL CARE FOR HIGH HEAD AT TERM, NOT 07/29/2016 NESSA VICENTE MD, Ot O36.63X0 MATERNAL CARE FOR EXCESS GROWTH, T 07/29/2016 NESSA VICENTE MD, Ot O61.0 FAILED MEDICAL INDUCTION OF LABOR 07/29/2016 NESSA VICENTE MD, Ot O62.1 SECONDARY UTERINE INERTIA 07/29/2016 NESSA VICENTE MD, Ot O90.81 ANEMIA OF THE PUERPERIUM 07/29/2016 NESSA VICENTE MD, Ot 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.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 CHILDBIRTH 07/29/2016 NESSA VICENTE MD, Ot O99.824 STREPTOCOCCUS B CARRIER STATE COMPLICATI 07/29/2016 NESSA VICENTE MD, Ot Z37.0 SINGLE LIVE 07/29/2016 NESSA VICENTE MD, Ot Z3A.39 39 WEEKS GESTATION OF 07/29/2016 NESSA VICENTE MD, Ot Z68.43 BODY MASS INDEX (BMI) 50-59.9 , ADULT 08/12/2016 NESSA VICENTE MD, Ot O36.63X0 MATERNAL CARE FOR EXCESS GROWTH, T 08/12/2016 NESSA VICENTE MD, Ot Z3A.40 40 WEEKS GESTATION OF 10/26/2016 ALBA AYERS DO Ot Z36 ENCOUNTER FOR SCREENING OF MOT 10/26/2016 ALBA AYERS DO Ot Z3A.09 9 WEEKS GESTATION OF 10/26/2016 ALBA AYERS DO Ot Z36 ENCOUNTER FOR SCREENING OF MOT 10/26/2016 ALBA AYERS DO Ot Z3A.22 22 WEEKS GESTATION OF 10/26/2016 NESSA VICENTE MD, Ot O36.63X0 MATERNAL CARE FOR EXCESS GROWTH, T 10/26/2016 NESSA VICENTE MD, Ot Z3A.40 40 WEEKS GESTATION OF 10/31/2016 MADLMAURIZIO FLOOR FRAMER Ot R10.13 EPIGASTRIC PAIN 10/31/2016 HOLLISLMAURIZIO FLOOR FRAMER Ot R19.7 DIARRHEA, UNSPECIFIED 11/01/2016 MADL, MAURIZIO Santo FLOOR FRAMER Ot R10.13 EPIGASTRIC PAIN 11/01/2016 MADL, MAURIZIO L FLOOR FRAMER Ot R19.7 DIARRHEA, UNSPECIFIED 11/10/2016 MADL, MAURIZIO L FLOOR FRAMER Ot R10.13 EPIGASTRIC PAIN 11/10/2016 MADL, MAURIZIO Santo FLOOR FRAMER Ot R19.7 DIARRHEA, UNSPECIFIED 07/19/2017 AYERS DO ALBA K Ot Z36 ENCOUNTER FOR SCREENING OF MOT 07/19/2017 ARMEN WYMAN ALBA K Ot Z3A.09 9 WEEKS GESTATION OF 07/19/2017 AYERS ALBA K Ot Z36 ENCOUNTER FOR SCREENING OF MOT 07/19/2017 ARMEN WYMANROSAA K Ot Z3A.22 22 WEEKS GESTATION OF 07/19/2017 NESSA VICENTE MD, Ot O36.63X0 MATERNAL CARE FOR EXCESS GROWTH, T 07/19/2017 NESSA VICENTE MD, Ot Z3A.40 40 WEEKS GESTATION OF 07/19/2017 MADL, MAURIZIO Santo FLOOR FRAMER Ot R10.13 EPIGASTRIC PAIN 07/19/2017 MADL, MAURIZIO Santo FLOOR FRAMER Ot R19.7 DIARRHEA, UNSPECIFIED 07/24/2017 NESSA VICENTE MD Ot O34.81 MATERNAL CARE FOR OTH ABNLT OF PELVIC OR 07/24/2017 NESSA VICENTE MD, Ot Z3A.09 9 WEEKS GESTATION OF 07/26/2017 NESSA VICENTE MD Ot O20.0 THREATENED 07/26/2017 NESSA VICENTE MD Ot O46.91 ANTEPARTUM HEMORRHAGE, UNSPECIFIED, FIRS 07/26/2017 NESSA VICENTE MD Ot Z3A.00 WEEKS OF GESTATION OF NOT SPEC 08/04/2017 NESSA VICENTE MD Ot O34.81 MATERNAL CARE FOR OTH ABNLT OF PELVIC OR 08/04/2017 NESSA VICENTE MD Ot Z3A.09 9 WEEKS GESTATION OF 08/10/2017 NESSA VICENTE MD Ot O20.0 THREATENED 08/10/2017 NESSA VICENTE MD Ot O46.91 ANTEPARTUM HEMORRHAGE, UNSPECIFIED, FIRS 08/10/2017 NESSA VICENTE MD Ot Z3A.00 WEEKS OF GESTATION OF NOT SPEC 08/21/2017 NESSA VICENTE MD Ot O46.8X1 OTHER ANTEPARTUM HEMORRHAGE, FIRST TRIME 08/21/2017 NESSA VICENTE MD Ot Z3A.13 13 WEEKS GESTATION OF 08/31/2017 NESSA VICENTE MD Ot O46.8X1 OTHER ANTEPARTUM HEMORRHAGE, FIRST TRIME 08/31/2017 NESSA VICENTE MD Ot Z3A.13 13 WEEKS GESTATION OF 10/26/2017 NESSA VICENTE MD Ot Z36.89 ENCOUNTER FOR OTHER SPECIFIED 10/26/2017 NESSA VICENTE MD, Ot Z3A.21 21 WEEKS GESTATION OF 11/30/2017 NESSA VICENTE MD Ot O46.93 ANTEPARTUM HEMORRHAGE, UNSPECIFIED, THIR 11/30/2017 NESSA VICENTE MD Ot Z3A.28 28 WEEKS GESTATION OF 12/04/2017 NESSA VICENTE MD Ot O46.93 ANTEPARTUM HEMORRHAGE, UNSPECIFIED, 12/04/2017 NESSA VICENTE MD Ot Z3A.28 28 WEEKS GESTATION OF 12/06/2017 NESSA VICENTE MD, Ot O46.93 ANTEPARTUM HEMORRHAGE, UNSPECIFIED, THIR 12/06/2017 NESSA VICENTE MD Ot Z3A.28 28 WEEKS GESTATION OF 02/08/2018 REGINALD CASTILLO DO Ot Z01.818 ENCOUNTER FOR OTHER PREPROCEDURAL EXAMIN 02/09/2018 REGINALD CASTILLO DO, Ot Z01.818 ENCOUNTER FOR OTHER PREPROCEDURAL EXAMIN Procedures Code Description [place] [address] Screening Test Of Visual Acuity, Quantitative, Bilateral 03/28/2012 70462 TEST, URINE (IN- HOUSE) 05/13/2014 [id number] EXTRACTION OF POC, LOW CERVICAL, OPEN AP 07/27/2016 [id number] INTRODUCE OTH THERAP SUBST IN MOUTH/PHAR 07/27/2016 Results Test Result Range Strep Gp B Culture - 07/06/16 17:27 Strep Gp B Culture Positive Negative Complete blood count (CBC) with automated white blood cell (WBC) differential - 07/26/16 19:40 Blood leukocytes automated count (number/volume) 8.1 10*3/uL 4.3-11.0 Blood erythrocytes automated count (number/volume) 3.73 10*6/uL 4.35-5.85 Venous blood hemoglobin measurement (mass/volume) 11.5 g/dL 11.5-16.0 Blood hematocrit (volume fraction) 35 % 35-52 Automated erythrocyte mean corpuscular volume 94 [foz_us] 80-99 Automated erythrocyte mean corpuscular hemoglobin (mass per erythrocyte) 31 pg 25-34 Automated erythrocyte mean corpuscular hemoglobin concentration measurement ( mass/volume) 33 g/dL 32-36 Automated erythrocyte distribution width ratio 14.0 % 10.0-14.5 Automated blood platelet count (count/volume) 166 10*3/uL 130-400 Automated blood platelet mean volume measurement 10.1 [foz_us] 7.4-10.4 Automated blood neutrophils/100 leukocytes 71 % 42-75 Automated blood lymphocytes/100 leukocytes 19 % 12-44 Blood monocytes/100 leukocytes 9 % 0-12 Automated blood eosinophils/100 leukocytes 1 % 0-10 Automated blood basophils/100 leukocytes 0 % 0-10 Blood neutrophils automated count (number/volume) 5.7 10*3 1.8-7.8 Blood lymphocytes automated count (number/volume) 1.5 10*3 1.0-4.0 Blood monocytes automated count (number/volume) 0.8 10*3 0.0-1.0 Automated eosinophil count 0.1 10*3/uL 0.0-0.3 Automated blood basophil count (count/volume) 0.0 10*3/uL 0.0-0.1 Blood type T Indirect antibody screen panel - 07/26/16 19:40 ABO+Rh group AP [facility] Transfusion band number [id number] [facility] Blood group antibody screen NEGATIVE [facility] Methicillin resistant Staphylococcus aureus (MRSA) screening culture - 17:50 Methicillin resistant Staphylococcus aureus (MRSA) screening culture NEG [facility] Complete blood count (CBC) with automated white blood cell (WBC) differential - 07/28/16 06:15 Blood leukocytes automated count (number/volume) 11.0 10*3/uL 4.3-11.0 Blood erythrocytes automated count (number/volume) 2.76 10*6/uL 4.35-5.85 Venous blood hemoglobin measurement (mass/volume) 8.3 g/dL 11.5-16.0 Blood hematocrit (volume fraction) 26 % 35-52 Automated erythrocyte mean corpuscular volume 96 [foz_us] 80-99 Automated erythrocyte mean corpuscular hemoglobin (mass per erythrocyte) 30 pg 25-34 Automated erythrocyte mean corpuscular hemoglobin concentration measurement ( mass/volume) 31 g/dL 32-36 Automated erythrocyte distribution width ratio 13.8 % 10.0-14.5 Automated blood platelet count (count/volume) 142 10*3/uL 130-400 Automated blood platelet mean volume measurement 9.9 [foz_us] 7.4-10.4 Automated blood neutrophils/100 leukocytes 88 % 42-75 Automated blood lymphocytes/100 leukocytes 7 % 12-44 Blood monocytes/100 leukocytes 6 % 0-12 Automated blood eosinophils/100 leukocytes 0 % 0-10 Automated blood basophils/100 leukocytes 0 % 0-10 Blood neutrophils automated count (number/volume) 9.6 10*3 1.8-7.8 Blood lymphocytes automated count (number/volume) 0.7 10*3 1.0-4.0 Blood monocytes automated count (number/volume) 0.6 10*3 0.0-1.0 Automated eosinophil count 0.0 10*3/uL 0.0-0.3 Automated blood basophil count (count/volume) 0.0 10*3/uL 0.0-0.1 [id number] - 10/26/16 20:30 Serum tissue transglutaminase IgA antibody detection 2 0 -19 Serum gliadin IgA antibody assay (units/volume) 2 % 0-19 Gliadin IgG antibody assay 1 % 0-19 Serum or plasma IgA measurement (mass/volume) 142 % 71- 263 STOOL (C-DIFF) - 10/28/16 10:12 C difficile Toxin Gene JOLIE Negative Negative Stool Culture - 10/28/16 10:12 Stool Culture Note C difficile Toxin Gene JOLIE - 10/28/16 10:12 C difficile Toxin Gene JOLIE Negative Negative Ova + Parasite Exam - 10/28/16 10:12 Ova + Parasite Exam Note CULTURE, GENITAL - 07/05/17 00:00 CULTURE, GENITAL SEE NOTE NRG UNLABELED SPECIMEN CANCEL TIQ DOCUMENTATION - 07/05/17 14:45 CONTACT SEE AOC NRG TESTS AFFECTED GENITAL CULT NRG COMMENT NRG REASON NO CLIENT RESPONSE NRG CBC - 12/05/17 15:36 WHITE BLOOD CELL COUNT 8.2 Thousand/uL 3.8-10.8 RED BLOOD CELL COUNT 3.92 Million/uL 3.80-5.10 HEMOGLOBIN 12.2 g/dL 11.7-15.5 HEMATOCRIT 36.3 % 35.0-45.0 MCV 92.6 fL 80.0-100.0 MCH 31.1 pg 27.0-33.0 MCHC 33.6 g/dL 32.0-36.0 RDW 12.9 % 11.0-15.0 PLATELET COUNT 166 Thousand/uL 140-400 MPV 9.5 fL 7.5-12.5 ABSOLUTE NEUTROPHILS 6519 cells/uL 8590-0812 ABSOLUTE LYMPHOCYTES 1082 cells/uL 850-3900 ABSOLUTE MONOCYTES 500 cells/uL 200-950 ABSOLUTE EOSINOPHILS 82 cells/uL 15-500 ABSOLUTE BASOPHILS 16 cells/uL 0-200 NEUTROPHILS 79.5 % NRG LYMPHOCYTES 13.2 % NRG MONOCYTES 6.1 % NRG EOSINOPHILS 1.0 % NRG BASOPHILS 0.2 % NRG CULTURE, GROUP B STREP (VAGINAL) - 01/25/18 14:13 STREPTOCOCCUS, GROUP B CULTURE SEE NOTE NRG Encounters ACCT No. Visit Date/Time Discharge Status Pt. Type Provider Facility Loc./Unit Complaint [id number] 05/13/2014 15:42:00 05/13/2014 23:59:59 CLS Outpatient ARMEN WYMAN ALBA K [id number] 03/28/2012 08:57:00 03/28/2012 23:59:59 CLS Outpatient [id number] 02/08/2018 05:39:00 02/08/2018 11:32:00 DIS Outpatient REGINALD CASTILLO DO [facility] PREOP PREVIOUS,FAMILY HISTORY OF OVARIAN CANCER [id number] 11/30/2017 13:17:00 11/30/2017 16:35:00 DIS Outpatient NESSA VICENTE MD [facility] WSo VAGINAL BLEEDING [id number] 10/11/2017 09:43:00 10/11/2017 23:59:59 CLS Outpatient NESSA VICENTE MD [facility] RAD Z34.82 CARE SECOND TRIMESTER [id number] 08/18/2017 11:49:00 08/18/2017 23:59:59 CLS Outpatient NESSA VICENTE MD [facility] RAD OTHER ANTEPARTUM HEMORRHAGE,FIRST TRIMESTER [id number] 07/25/2017 09:29:00 07/25/2017 23:59:59 CLS Outpatient NESSA VICENTE MD [facility] RAD THREATENED MISCARRIAGE O20.0 [id number] 07/21/2017 11:48:00 07/21/2017 23:59:59 CLS Outpatient NESSA VICENTE MD [facility] RAD NORMAL IN MULTIGRAVIDA [id number] 10/26/2016 20:14:00 10/26/2016 23:59:59 CLS Outpatient MAURIZIO PENA [facility] LAB R10.13,R19.7 [id number] 07/26/2016 19:18:00 07/29/2016 15:40:00 DIS Inpatient NESSA VICENTE MD [facility] WS INDUCTION [id number] 07/25/2016 09:00:00 07/25/2016 23:59:59 CLS Outpatient NESSA VICENTE MD [facility] RAD O36.63X0 LARGE FOR GEST AGE FETUS [id number] 03/24/2016 11:51:00 03/24/2016 23:59:59 CLS Outpatient ALBA AYERS DO [facility] RAD Z34.02 [id number] 01/05/2016 14:20:00 01/05/2016 23:59:59 CLS Outpatient ALBA AYERS DO [facility] RAD DATING/VIABILITY [id number] 02/14/2018 12:00:00 PEN Preadmit FENECH DO, REGINALD S PREVIOUS,FAMILY HISTORY OF OVARIAN CANCER [id number] 02/07/2018 14:00:00 02/07/2018 23:59:59 CLS Outpatient [facility] [id number] 01/25/2018 14:00:00 Document Registration [id number] 12/05/2017 14:20:00 Document Registration [id number] 07/05/2017 14:20:00 Document Registration [id number] 07/05/2017 00:00:00 Document Registration [id number] 10/28/2016 10:20:00 Document Registration [id number] 07/09/2016 14:08:00 Document Registration [id number] 11/03/2016 03:07:00 Document Registration
[2018-02-11] MEDS ORDERED: BUPIVACAINE 0.25% 30 ML (SENSORCAINE) VIAL ONE (19:04)
[2018-02-11] MEDS ORDERED: OXYTOCIN/NORMAL SALINE 500 ML IV SCH (19:19)
[2018-02-11] MEDS ORDERED: IBUP-1780 PO (19:24)
[2018-02-11] MEDS ORDERED: DOCU100C37 PO (19:24)
[2018-02-11] MEDS ORDERED: OXYC1TAB12 PO (19:24)
--- NOTE | 2018-02-11 19:25 | Discharge Instructions ---
Discharge Instructions Discharge Medications New, Converted or Re-Newed RX: RX on Chart Patient Instructions Patient Instructions: As directed [facility] As directed Activity & Diet Discharge Diet: No Restrictions Activity as Tolerated: No Orders-Post D/C & Referrals Follow Up Appt: RTC on Friday, February 16, 2018 at 930 a.m. for incision check with Dr. Rodriguez Call to make follow up appt. for patient with Dr. Madrigal in 6 weeks. Wound Care: Remove bandar, apply benzoin and steri strips. Activity Per routine post instructions. Diet as tolerated Patient may shower or tub bathe as desired. Continue home meds LYNN RODRIGUEZ MD Feb 11, 2018 19:25
[2018-02-11] MEDS ORDERED: D5 LR IV SOLUTION 1,000 ML IV ONE (19:27)
[2018-02-11] MEDS: KETOROLAC 30 MG/ML VIAL IVP SCH (19:30)
[2018-02-11] MEDS ORDERED: ONDANSETRON 4 MG/2 ML (SDV) Z0FRAN IVP PRN (19:30)
[2018-02-11] MEDS ORDERED: TETANUS,DIPTH,PERTUSS P/F (BOOSTRIX) 0.5 ML VIAL IM ONE (19:30)
[2018-02-11] MEDS ORDERED: PROMETHAZINE INJ 25 MG/ML (PHENERGAN) AMP IM PRN (19:30)
[2018-02-11] MEDS ORDERED: MEPERIDINE (DEMEROL) INJ 100 MG/ML IM PRN (19:30)
[2018-02-11] MEDS ORDERED: MEASLES,MUMPS,RUBELLA 1 EA INJ SC ONE (19:30)
[2018-02-11 20:50] VITALS: BP 119/71
[2018-02-11] MEDS: DOCUSATE SODIUM 100 MG (COLACE) CAP PO SCH (23:27)
[2018-02-11 23:30] VITALS: BP 123/56
[2018-02-12] MEDS: oxyCODONE/APAP 10/325MG (PERCOCET 10) TABLET PO PRN ×3 (00:17→09:40)
[2018-02-12] MEDS: KETOROLAC 30 MG/ML VIAL IVP SCH ×2 (01:05→06:31)
[2018-02-12 03:30] VITALS: BP 110/69
--- NOTE | 2018-02-12 05:23 | OPERATIVE REPORT ---
DATE OF SERVICE: 02/11/2018 PREOPERATIVE DIAGNOSES: 1. Term at 39+ week's gestation in labor with previous . 2. Request for risk reducing salpingectomy. POSTOPERATIVE DIAGNOSES: 1. Term at 39+ week's gestation in labor with previous . 2. Request for risk reducing salpingectomy. OPERATIVE PROCEDURE: Repeat low transverse delivery of a viable male with Apgars of 8 and 9 at 1 and 5 minutes, respectively. Cord blood pH was 7.28, time of 1840 and a weight of 8 pounds and 4 ounces. OPERATIVE DESCRIPTION: With the patient in the supine position under satisfactory spinal analgesia, the patient was prepped and draped in usual fashion for abdominal surgery. Peterson catheter was placed in the urinary bladder. A repeat Pfannenstiel incision was made through skin with a scalpel at the site of the patient's previous Pfannenstiel incision scar. The abdomen was entered in the usual manner. Bladder retractor placed into position and clean scalpel used to make a 4 cm hysterotomy incision transversely across lower uterine segment that was extended by blunt dissection as well. Copious clear fluid was released on hysterotomy. Mccallum forceps were applied to facilitate the delivery of a vigorous viable male with stats as noted above. The infant was bulb suctioned on delivery of the head and again on completion of delivery. Umbilical cord was doubly clamped and cut and the passed to Dr. Madrigal, the force dispatcher in attendance for delivery. Cord bloods were obtained. The placenta delivered spontaneously Barrios. It was normal with a 3-vessel cord. The uterus was exteriorized, the interior wiped clean with a wet laparotomy sponge and the uterine incision closed with a running locked suture of 2-0 Vicryl. Hemostasis was complete. The patient had requested risk reducing salpingectomy. She and her were adamant and that she wanted her tubes removed. She understood that it would decrease her right lifetime risk for a pelvic cancer that would look like a reasonable and ovarian cancer. She has family history with relatives that have ovarian cancer. She understood and accepted the undesired side effect that it would render her incapable of conceiving. She was willing to accept that. At this point, the right fallopian tube was elevated. I confirmed with the patient that she did in fact still want her tubes to be removed. The mesosalpinx was then opened along its length except for few spots where there were large blood vessels. These were ligated. The base of the salpinx was ligated and then the fallopian tube was removed sharply and passed from the field labeled appropriately and sent to pathology for permanent section. Same procedure performed on the left with the same result. Uterus was now returned to abdominal cavity. All blood clot and debris was removed from the abdominal cavity. With sponge, needle counts correct, hemostasis assured and prior to peritoneum was closed with a running suture of 2-0 Vicryl. Rectus muscles were closed with that suture as well. The rectus fascia was closed with 2-0 Vicryl, subcutaneous tissue was closed with 2-0 Vicryl and the skin was stapled. Sponge and needle counts were correct on completion of the procedure. Estimated blood loss was around 300 mL. The patient tolerated the procedure well and was transferred to the recovery room in stable condition. The infant had been taken stable to the nursery under the care of Dr. Madrigal. Job ID: [id number] DocumentID: [id number] Dictated Date: 02/11/2018 19:17:17 Water Hauler Date: 02/12/2018 05:23:19 Dictated By: LYNN SOLIMAN MD MTDD
--- NOTE | 2018-02-12 07:36 | Progress Note-Standard ---
Standard Progress Note Progress Notes/Assess & Plan Date Seen by a Provider: Feb 12, 2018 Time Seen by a Provider: 07:35 Progress/Assessment & Plan This patient is without complaint. She is ambulating, voiding, tolerating oral intake well has good pain control. Her baby was transferred to [facility] she is requesting discharge home. Vital Signs 02/12/18 03:30 Temp 97.9 Pulse 83 Resp 18 B/P (MAP) 110/69 (83) Pulse Ox 96 O2 Delivery Room Air Vital signs are stable. Patient is afebrile. The abdomen is benign. The surgical incision is clean dry and intact. Extremities show no clubbing or cyanosis. There is no Homans sign. Some pretibial pitting edema that is normal. Assessment and plan postoperative day number 1 status post repeat delivery with risk reducing salpingectomy. Patient be discharged home with follow-up in clinic Final Diagnosis 39 week repeat delivery LYNN SOLIMAN MD Feb 12, 2018 07:36
[2018-02-12 08:30] VITALS: BP 119/78
--- NOTE | 2018-02-12 09:14 | Anesthesia-Regional Post-Op ---
Regional Patient Condition Mental Status: Alert, Oriented x3 Circulation: Same as Pre-Op Headache: Absent Sensation: Full Recovery Motor Block: Absent Post Op Complications Complications None Follow Up Care/Instructions Patient Instructions None needed. Anesthesia/Patient Condition Patient is doing well, no complaints, stable vital signs, no apparent adverse anesthesia problems. LYNN GARRETT DO Feb 12, 2018 09:13
[2018-02-12] MEDS: DOCUSATE SODIUM 100 MG (COLACE) CAP PO SCH (09:40)
[2018-02-12] MEDS ORDERED: IBUPROFEN 800 MG (MOTRIN) TAB PO SCH (19:30)
== END 2018-02-12 09:57 | disposition home or self-care (01) | DRG 785 ==
LOC: WSo 13:30 → LDRP 13:30 → WSo 17:30 → LDRP 17:30
PROVIDERS: ADMIT Family Medicine; ATTEND Family Medicine
PROC: 10D00Z1 Extraction of Products of Conception, Low, Open Approach (ICD-10-PCS; principal; 2018-02-12)
PROC: 0UT70ZZ Resection of Bilateral Fallopian Tubes, Open Approach (ICD-10-PCS; 2018-02-12)
DX: O34.211 Maternal care for low transverse scar from previous cesarean delivery (principal); Z3A.39 39 weeks gestation of pregnancy; Z37.0 Single live birth; Z40.03 Encounter for prophylactic removal of fallopian tube(s); Z80.41 Family history of malignant neoplasm of ovary
CPT/HCPCS: 36415; 81000; 85025; 86850; 86900; 86901; 94664; 99212